=== PATIENT | female | born 1945 | race Asian ===

== ENCOUNTER 2017-06-20 08:47 | Inpatient (IN) | payer MEDICARE, OTHER ==
--- NOTE | 2017-06-20 09:02 | ED Physician Chart ---
ED Chief Complaint/HPI - Patient Information Date Seen:: 06/20/17 Time Seen:: 08:50 Chief Complaint:: Cough History of Present Illness:: onset x one week of cough, fever, and congestion; pt was made a 51/50 hold by police because of agitative behavior at a public place this am; pt denies H/As, Neck pain, C/P, SOB, Abd. Pain, A/N/V/D/c, chills, or urinary s/s Allergies:: Allergies Allergy/AdvReac Type Severity Reaction Status Date / Time No Known Allergies Allergy Verified 06/20/17 08:52 Vitals:: Vital Signs - 8 hr 06/20/17 08:52 Temp 98.1 F HR 69 RR 16 BP 111/57 O2 Sat % 96 Historian:: Patient, EMS Review:: Nurse's Note Reviewed, EMS run form Reviewed ED Review of Systems - Review of Systems General/Constitutional: Fever, Chills, No weight loss, No weakness, No diaphoresis, No edema, No loss of appetite Skin: No skin lesions, No rash, No bruising Head: No headache, No light-headedness Eyes: No loss of vision, No pain, No diplopia ENT: No earache, No nasal drainage, No sore throat, No tinnitus Neck: No neck pain, No swelling, No thyromegaly, No stiffness, No mass noted Cardio Vascular: No chest pain, No palpitations, No PND, No orthopnea, No edema Pulmonary: No SOB, Cough, No sputum, Wheezing GI: No nausea, No vomiting, No diarrhea, No pain, No melena, No hematochezia, No constipation, No hematemesis G/U: No dysuria, No frequency, No hematuria Box Order Person: No vaginal discharge, No abnormal vaginal bleed, No contraction Musculoskeletal: No bone or joint pain, No back pain, No muscle pain Endocrine: No polyuria, No polydipsia Psychiatric: No prior psych history, No depression, No anxiety, No suicidal ideation, No homicidal ideation, No auditory hallucination, No visual hallucination Hematopoietic: No bruising, No lymphadenopathy Allergic/Immuno: No urticaria, No angioedema Neurological: No syncope, No focal symptoms, No weakness, No paresthesia, No headache, No seizure, No dizziness, No confusion, No vertigo ED Past Medical History - Past Medical History Obtainable: Yes Past Medical History: HTN, Asthma/COPD, Thyroid disorder Family History: HTN Social History: Smoker, No Alcohol, No Drug Use, Single, Homeless Surgical History: None Psychiatricy History: None Medication: Reviewed Family Medical History - Family Member Mother Hx Family Cancer: No Hx Family Coronary Artery Disease: No Hx Family Congestive Heart Failure: No Hx Family Hypertension: No Hx Family Stroke: No Hx Family Diabetes: No Hx Family Seizures: No Hx Family Hepatitis: No Hx Family Psychiatric Problems: No ED Physical Exam - Physical Examination General/Constitutional: Awake, Well-developed, well-nourished, Alert, No distress, GCS 15, Non-toxic appearing, Ambulatory Head: Atraumatic Eyes: Lids, conjuctiva normal, PERRL, EOMI Skin: Nl inspection, No rash, No skin lesions, No ecchymosis, Well hydrated, No lymphadenopathy ENMT: External ears, nose nl, Nasal exam nl, Lips, teeth, gums nl Neck: Nontender, Full ROM w/o pain, No JVD, No nuchal rigidity, No bruit, No mass, No stridor Respiratory: Nl effort/Exclusion Other Respiratory comments:: Lungs: + Rales, Rhonchi, and Wheezes Cardio Vascular: RRR, No murmur, gallop, rubs, NL S1 S2 GI: No tenderness/rebounding/guarding, No organomegaly, No hernia, Normal BS's, Nondistended, No mass/bruits, No McBurney tenderness : No CVA tenderness Extremities: No tenderness or effusion, Full ROM, normal strength in all extremities, No edema, Normal digits & nails Neuro/Psych: Alert/oriented, DTR's symmetric, Normal sensory exam, Normal motor strength, Judgement/insight normal, Mood normal, Normal gait, No focal deficits Misc: Normal back, No paraspinal tenderness ED Labs/Radiology/EKG Results - Lab Results Comments:: Na+: 120; WBC: 13.9 - Radiology Results Results: CXR: COPD; + LLL Haziness - EKG Interpretations Rate & Rhythm: NSR Comments:: non-specific st-t changes ED Septic Shock - . Is Septic Shock (SBP<90, OR Lactate>4 mmol\L) present?: No - <6hrs of presentation: Vital Signs: Vital Signs - 8 hr 06/20/17 08:52 Temp 98.1 F HR 69 RR 16 BP 111/57 O2 Sat % 96 ED Reassessment (Disposition) - Reassessment Reassessment Condition:: Improved - Diagnosis Diagnosis:: Dx: Hyponatremia; Dehydration; Cough/Congestion; PNA; COPD; Dyspnea/Wheezing; Leukocytosis; Sepsis - Aftercare/Follow up Instructions Aftercare/Follow-Up Instructions:: Counseled pt regarding lab results/diagnosis & need follow up, Counseled pt & family regarding lab results/diagnosis & need follow up - Patient Disposition Discharge/Transfer:: Acute Care w/in this hosp Accepting Physician:: Dr. Christy Time Called:: 1010 Time Responded:: 10:10 Admitted to:: Telemetry Spoke to:: Dr. Christy Admitting Medical Physician:: Dr. Christy Condition at Disposition:: Stable, Improved
[2017-06-20] MEDS ORDERED: Albuterol/Ipratropium Neb 3 ML AERS HHN ONE ×2 (09:03→09:08)
[2017-06-20] MEDS ORDERED: Levofloxacin 500mg/100mL 500 MG/100 ML BAG IV ONE ×2 (09:09→09:29)
[2017-06-20 09:20] LABS: HEMOGLOBIN 11.4 gm/dL (12-16); MEAN CELL VOLUME 89.1 fl (81-100); MEAN CORPUSCULAR HEMOGLOBIN 31.6 pg (27.0-31.0); MEAN CORPUSCULAR HGB CONC 35.5 pg (28.0-36.0); MEAN PLATELET VOLUME 6.3 fl; PLATELET COUNT 337 Th/cmm (150-400); RED BLOOD COUNT 3.59 Mil/cmm (3.80-5.20)
[2017-06-20 09:26] LABS: WHITE BLOOD COUNT 13.9 Th/cmm (4.8-10.8)
--- NOTE | 2017-06-20 09:33 | Diagnostic Imaging Report ---
Portable chest x-ray HISTORY: Pain The overall heart size is difficult to assess with portable technique, but appears somewhat generous. Atherosclerotic calcification seen within the aortic arch. No acute focal pulmonary processes. IMPRESSION: 1. No acute pulmonary processes 2. Suggestion of a generous heart size with atherosclerotic vascular changes
[2017-06-20 09:42] LABS: INR 0.96 (0.5-1.4)
[2017-06-20] MEDS ORDERED: Guaifenesin DM 10 ML UDC PO ONE (09:43)
[2017-06-20 09:44] LABS: BAND NEUTROPHILE 3 % (0-10); EOSINOPHIL 1 % (0-5); NEUTROPHILS 83 % (40-80); TOTAL CELLS COUNTED 100
[2017-06-20 09:46] LABS: ACETAMINOPHEN < 10.0 ug/mL (10.0-30.0)
[2017-06-20 09:48] LABS: ALKALINE PHOSPHATASE 118 U/L (34-104); ANION GAP 9.5 (7.0-16.0); BILIRUBIN,TOTAL 0.6 mg/dL (0.3-1.0); BUN - UREA NITROGEN 19 mg/dL (7-25); BUN/CREATININE RATIO 17.3; CALCIUM SERUM 8.7 mg/dL (8.6-10.3); CARBON DIOXIDE 24.4 mEq/L (21.0-31.0); CHLORIDE 91 mEq/L (98-107); CHOLESTEROL 150 mg/dL (<200); CREATININE - SERUM 1.1 mg/dL (0.6-1.2); GLUCOSE 118 mg/dL (70-105); POTASSIUM SERUM 4.9 mEq/L (3.5-5.1); SGOT 55 U/L (13-39); SGPT/ALT 35 U/L (7-52); TRIGLYCERIDES 81 mg/dL (<150)
[2017-06-20 09:58] LABS: SODIUM SERUM 120 mEq/L (136-145)
[2017-06-20] MEDS ORDERED: Guaifenesin DM 10 ML UDC ONE (10:13)
[2017-06-20] MEDS ORDERED: Sodium Chloride 0.9% 1,000 ML IV ONE (10:18)
[2017-06-20 10:24] LABS: URINE BILIRUBIN NEGATIVE (NEGATIVE); URINE BLOOD NEGATIVE (NEGATIVE); URINE GLUCOSE (UA) NEGATIVE (NEGATIVE); URINE KETONE NEGATIVE (NEGATIVE); URINE PROTEIN NEGATIVE (NEGATIVE); URINE UROBILINOGEN 0.2 E.U./dL (0.2 - 1.0)
[2017-06-20 10:26] LABS: URINE COLOR YELLOW
[2017-06-20 10:30] LABS: URINE EPITHELIAL CELLS FEW /lpf (FEW); URINE RBC NONE SEEN /hpf (0-5); URINE WBC 0-2 /hpf (0-5)
[2017-06-20 10:31] LABS: URINE BACTERIA OCCASIONAL /hpf (NONE SEEN)
[2017-06-20 10:37] LABS: AMPHETAMINE URINE NEGATIVE (NEGATIVE); BARBITURATES URINE NEGATIVE (NEGATIVE); METHADONE URINE NEGATIVE (NEGATIVE)
[2017-06-20] MEDS ORDERED: Albuterol/Ipratropium Neb 3 ML AERS HHN PRN (10:40)
[2017-06-20] MEDS ORDERED: Sodium Chloride 0.9% 1,000 ML IV SCH (14:15)
[2017-06-20] MEDS: Albuterol/Ipratropium Neb 3 ML AERS HHN SCH ×3 (16:03→22:08)
[2017-06-20] MEDS ORDERED: Pneumococcal Vaccine 0.5 mL Vial IM ONE (16:51)
[2017-06-20] MEDS ORDERED: methylPREDNISolone SS 40 mg Vial IVP SCH (17:00)
[2017-06-20] MEDS ORDERED: Sodium Chloride 3% 250 ML IV ONE (19:43)
[2017-06-20 20:25] LABS: ALB/GLOB RATIO 1.1 (1.0-1.8); ALKALINE PHOSPHATASE 104 U/L (34-104); ANION GAP 8.8 (7.0-16.0); BILIRUBIN,TOTAL 0.3 mg/dL (0.3-1.0); BUN - UREA NITROGEN 19 mg/dL (7-25); CALCIUM SERUM 8.4 mg/dL (8.6-10.3); CHLORIDE 93 mEq/L (98-107); GLUCOSE 203 mg/dL (70-105); POTASSIUM SERUM 4.8 mEq/L (3.5-5.1); SGOT 40 U/L (13-39); SGPT/ALT 30 U/L (7-52); SODIUM SERUM 120 mEq/L (136-145)
[2017-06-20] MEDS ORDERED: methylPREDNISolone SS 40 mg Vial IV SCH (21:00)
[2017-06-20] MEDS ORDERED: Sodium Chloride 3% 500 ML IV ONE (21:32)
[2017-06-20 22:25] LABS: URINE BILIRUBIN NEGATIVE (NEGATIVE); URINE BLOOD TRACE (NEGATIVE); URINE GLUCOSE (UA) NEGATIVE (NEGATIVE); URINE KETONE NEGATIVE (NEGATIVE); URINE PROTEIN NEGATIVE (NEGATIVE); URINE UROBILINOGEN 0.2 E.U./dL (0.2 - 1.0)
[2017-06-20 22:28] LABS: URINE COLOR YELLOW
[2017-06-20 22:32] LABS: URINE EPITHELIAL CELLS FEW /lpf (FEW); URINE RBC 0-2 /hpf (0-5); URINE WBC 0-2 /hpf (0-5)
[2017-06-20 22:33] LABS: URINE BACTERIA FEW /hpf (NONE SEEN)
[2017-06-21] MEDS: Albuterol/Ipratropium Neb 3 ML AERS HHN SCH ×6 (02:58→23:08)
--- NOTE | 2017-06-21 03:51 | Consultation ---
DATE OF CONSULTATION: 06/20/2017 REASON FOR CONSULTATION: Shortness of breath. HISTORY OF PRESENT ILLNESS: This is a 71-year-old gentleman who was basically found on the street with behavior problem. Subsequently, the patient was brought to the hospital and apparently there was some question as to patient's asthmatic bronchitis and shortness of breath. I was asked to see this patient for further care and necessary treatment. At this particular time, patient is awake, but not feisty, but most of the questions she says she does not have a problem. The patient accepts that patient has some coughing and wheezing for a few days. Denies of any chest pain and denied of any fever or denied of any previous lung problem. Denied of swelling of the legs and denies of any other related problems at this particular time. She claims to be living with the family, though does not remember any family name, etc. Denies of any fever. She says she may have lost weight, but could not be quantified. The patient's, unfortunately, history is very limited at this particular time. PAST MEDICAL HISTORY: Possibly bronchial asthma. ALLERGIC HISTORY: Nil. SMOKING HISTORY: Nil. SURGICAL HISTORY: Denies. PHYSICAL EXAMINATION: GENERAL: This is an elderly cachectic, frail, white looking female, awake, alert, oriented, not in acute distress. VITAL SIGNS: The patient's temperature is 98.3, blood pressure 112/50, respirations 20, saturation 99 Examination of the head is essentially unremarkable. Pupils appear to be equal and reacting to light. Conjunctivae are slightly pallor. Oral cavity shows slightly dry mouth, but otherwise unremarkable. NECK: No nodes in the neck could be palpated. Good bilateral carotid upstroke. CHEST: Shows occasional wheezing with diminished air entry. HEART: Regular. ABDOMEN: Soft, nontender. EXTREMITIES: Shows no peripheral edema. LABORATORY DATA: The patient's chest x-ray shows some haziness in left base, otherwise unremarkable with borderline cardiomegaly. White count is 13.9, hemoglobin 11.4 and neutrophils 83. Sodium is 120, glucose is 118, AST is 55, and alkaline phosphatase is 118. CK-kinase is 1200, troponin is okay. Albumin is 3.6. TSH is 8.0. Urine shows high specific gravity, but otherwise unremarkable. ASSESSMENT: 1. The patient has probably acute asthmatic bronchitis. 2. Severe electrolyte imbalance, might have caused the psychosis; exact etiology not clearcut. 3. Question as to chronic bronchial asthma. 4. Significant malnourished clinically. PLANS AND SUGGESTIONS: We will go ahead and correct electrolytes. We will give nebulized breathing treatment with bronchodilator and inhaled steroid. I agree with empirical antibiotic. We will repeat the patient's chest x-ray, check the need for O2 and hopefully down the line, we can get more reliable history and go from there. JOB# [id number]
[2017-06-21 06:48] LABS: ALB/GLOB RATIO 1.1 (1.0-1.8); ALKALINE PHOSPHATASE 96 U/L (34-104); ANION GAP 12.6 (7.0-16.0); BILIRUBIN,TOTAL 0.2 mg/dL (0.3-1.0); BUN - UREA NITROGEN 24 mg/dL (7-25); BUN/CREATININE RATIO 21.8; CALCIUM SERUM 8.2 mg/dL (8.6-10.3); CARBON DIOXIDE 21.5 mEq/L (21.0-31.0); CHLORIDE 96 mEq/L (98-107); CREATININE - SERUM 1.1 mg/dL (0.6-1.2); GLUCOSE 230 mg/dL (70-105); MAGNESIUM 1.9 mg/dL (1.9-2.7); POTASSIUM SERUM 4.1 mEq/L (3.5-5.1); SGOT 28 U/L (13-39); SGPT/ALT 27 U/L (7-52); SODIUM SERUM 126 mEq/L (136-145)
[2017-06-21] MEDS: Budesonide 0.5 Mg/2 mL Ud HHN SCH ×2 (07:01→19:27)
[2017-06-21 07:03] LABS: HEMOGLOBIN 9.7 gm/dL (12-16); MEAN PLATELET VOLUME 6.7 fl; NEUTROPHILE ABSOLUTE 16.5 Th/cmm (1.8-8.0)
[2017-06-21 07:06] LABS: MEAN CELL VOLUME 89.1 fl (81-100); MEAN CORPUSCULAR HGB CONC 34.7 pg (28.0-36.0); PLATELET COUNT 291 Th/cmm (150-400); RED BLOOD COUNT 3.14 Mil/cmm (3.80-5.20); RED CELL DISTRIBUTION WIDTH 14.2 % (11.5-20.0)
[2017-06-21 07:20] LABS: WHITE BLOOD COUNT 18.1 Th/cmm (4.8-10.8)
[2017-06-21] MEDS ORDERED: Levothyroxine 0.05 Mg Tab PO SCH (07:30)
[2017-06-21 07:34] LABS: BILIRUBIN,DIRECT 0.08 mg/dL (0.0-0.2)
[2017-06-21 07:42] LABS: BAND NEUTROPHILE 4 % (0-10); NEUTROPHILS 87 % (40-80); TOTAL CELLS COUNTED 100
[2017-06-21 08:57] LABS: ABG SOURCE Arterial; ALLEN TEST YES; BE(B) -0.1 mEq/L (-3.0-3.0); FIO2 21; HCO3 24.8 mEq/L (20.0-26.0); pH 7.43 (7.35-7.45)
[2017-06-21] MEDS: cefTRIAXone 1 GM in Sodium Chloride 0.9% 50 ML IV SCH (10:00)
--- NOTE | 2017-06-21 10:51 | Diagnostic Imaging Report ---
Chest 2 views History: Shortness of breath bronchitis Comparison: 06/20/2017 FINDINGS: Mild chronic lung changes are noted. There is no focal consolidation or pleural effusions mild cardiomegaly is noted. Gas-filled loops of bowel are seen along the left upper quadrant. Degenerative changes of the spine are noted. IMPRESSION: Mild chronic lung changes with no focal consolidation identified. Mild cardiomegaly.
[2017-06-21] MEDS: methylPREDNISolone SS 40 mg Vial IVP SCH ×2 (13:00→21:15)
[2017-06-21] MEDS ORDERED: methylPREDNISolone SS 40 mg Vial IVP SCH (13:00)
[2017-06-21] MEDS ORDERED: Menthol/Zinc Oxide Oint 113gm Tube TP PRN (17:48)
--- NOTE | 2017-06-21 19:46 | History & Physical ---
ADMIT DATE: 06/20/2017 CHIEF COMPLAINT: Cough. HISTORY OF PRESENT ILLNESS: This is a 71-year-old female who is a chronic smoker, who was brought to Emergency Room for evaluation of severe cough with some shortness of breath. The patient was evaluated in the Emergency Room, diagnosed with the acute COPD exacerbation and subsequently admitted to the hospital for treatments. The patient is currently homeless. The patient admits chronic smoking. Denies any fever, no chills, no chest pain, no dizziness, no palpitations. The patient does not have any regular physician or she denies taking any medications on a regular basis. PAST MEDICAL HISTORY: Hypothyroidism. PAST SURGICAL HISTORY: Denies. FAMILY HISTORY: Denies significant family history. SOCIAL HISTORY: She is currently at homeless. Denies any alcohol or street drug use. Admits to daily smoking. REVIEW OF SYSTEMS: For cough. Otherwise, all 12-point system reviewed, appears negative. PHYSICAL EXAMINATION: VITAL SIGNS: Temperature 98.6, pulse 102, respiration is 20, blood pressure 112/56. HEART: S1, S2 normal. LUNGS: Bilateral few rales noted. ABDOMEN: Soft, nontender, no guarding noted. NEUROLOGIC: The patient is alert, awake. Moves all extremities, follows commands. Grossly nonfocal exam. EXTREMITIES: No edema. No ____ available. AVAILABLE LABORATORY DATA: WBC 18.1, hemoglobin ____, hematocrit 28.0, platelet count is 291. ABG pH 7.43, pCO2 of 36, pO2 of 74, bicarbonate 24.8. Sodium 120, potassium 4.1, BUN is 24, creatinine 1.1. Uric acid 8.1. Troponin 0.01. BNP 50, total protein is 5.8. TSH 8.04, HDL 66, LDL 85, total cholesterol 150. Urine negative for any leukocyte esterase or nitrites. Chest x-ray today, mild chronic lung changes with no focal consolidation, mild cardiomegaly noted. ASSESSMENT: 1.Acute chronic obstructive pulmonary disease exacerbation, slowly improving. 2.Hypothyroidism. 3.Homelessness. PLAN: The patient was started on IV Solu-Medrol, oxygen, frequent nebulizer treatment. IV Rocephin was started. Pulmonology was consulted. The patient was started on Synthroid. Social service and Psych has been consulted. We will follow up on the further specialty recommendations, smoking cessation advised. The patient also noticed to have hyponatremia. Nephrology was consulted. The patient appeared to have an excess water intake. The patient was given 1 dose of Lasix, sodium has been improved. We will follow serum osmolality, urine ____ was noted. We will follow up on the further Nephrology's recommendations as well. Discussed patient's condition and plan care with nursing staff. Social service has been consulted for homelessness evaluation. JOB# [id number]
[2017-06-21 22:45] VITALS: BP 112/45
--- NOTE | 2017-06-21 22:49 | Consultation ---
DATE OF CONSULTATION: 06/21/2017 HISTORY OF PRESENT ILLNESS: This is a 71-year-old female brought in on 5150 hold by police, agitation, and agitated behavior in public. Apparently, the patient is homeless, acting strange, somewhat confused, . AO to name. She knows where she is. She has no idea why she is here. She knows the month, the year, and not the day of the week. Denying overt depressive symptoms. PAST PSYCHIATRIC HISTORY: Unclear. FAMILY HISTORY: Unclear. SOCIAL HISTORY: The patient was born in the [facility]. . States she has one son, "but he is in [facility]." No drugs, but she smokes. PAST MEDICAL HISTORY: Please see full H and P. MENTAL STATUS EXAMINATION: Stated age. Fair eye contact. Speech within normal limits. Mood unclear. Affect flat. Thought processes were somewhat disoriented. No overt SI or HI. Unclear of psychotic symptoms, but she denies, but apparently, she was acting strange in public, concerns for grave disability. Insight and judgment diminished. PROVISIONAL DIAGNOSIS: Mood, unspecified; psychosis, unspecified. MEDICAL DIAGNOSIS: Please see full H and P. PLAN: Continue 5150 hold. Increase collateral. The patient is not a very good historian. We will monitor. JOB# [id number] MTDJose Alfredo
--- NOTE | 2017-06-21 23:20 | Consultation ---
DATE OF CONSULTATION: 06/21/2017 RENAL CONSULT LOCATION: [facility], room #____, bed 4. ATTENDING PHYSICIAN: Dr. Christy. I thank you very much, Dr. Christy for allowing me to participate in the management of this patient of yours. IDENTIFICATION: This is a 71-year-old female patient who is not a good historian. History has been taken by reviewing the old chart, Emergency Room chart and a little bit information from the patient. HISTORY OF PRESENT ILLNESS: This is a 71-year-old female patient who was found in a lethargic state, on the street with some behavioral problem. Apparently, the patient has been homeless and was short of breathing. The patient was brought to the Emergency Room, where she was found to have bronchitis, but at that same time, the patient also has severe hyponatremia. Upon questioning in detail, the patient states that she does not have much food to eat and she is drinking lots of water lately. The patient was evaluated by ER physician and subsequently laboratory technical specialist. The patient has been admitted. The patient initially was started on normal saline at 80 mL per hour, which has been discontinued. According to the staff, the patient does not have any vomiting or diarrhea. No history of seizures. No history of hematuria, anuria or dysuria. There is no history of abdominal pain or chest pain. The patient was very agitated on the street before picking her up. PAST MEDICAL AND SURGICAL HISTORY: Possible history of asthma, COPD, hypertension and some thyroid disorder. SOCIAL HISTORY: No history of alcoholism. The patient is a smoker. No drug use. The patient is homeless. PHYSICAL EXAMINATION: GENERAL: The patient is not in acute distress. VITAL SIGNS: Temperature 98.1, heart rate 69, respirations 16, blood pressure 111/57. Intake and output not available. HEAD: Normocephalic. EAR, NOSE, THROAT: No bleeding or discharge. NECK: No stiffness. Jugular venous pressure slightly distended. LUNGS: Few rhonchi on the right base, otherwise clear. HEART: Regular, no rub or gallop. ABDOMEN: Soft, not distended. EXTREMITIES: Trace edema. LABORATORY DATA: WBC 18.1, hemoglobin 9.7, platelet count 291,000. Sodium 120, potassium 4.9, chloride 91, CO2 24, sugar 118, BUN 19, creatinine 1.1. Uric acid 8.4, calcium 8.7, AST, ALT elevated. Albumin 3.6. TSH 8.04. ASSESSMENT: 1.Hyponatremia. 2.Hypothyroidism. 3.Hypertension. 4.Anemia. 5.Asthma. PLAN: I will discontinue normal saline IV. We will start the patient on ____. I will give Lasix to increase free water clearance. I will start patient on levothyroxine. Anemia workup will be initiated. Check phosphorus, magnesium, CMP, urinalysis, urine electrolytes. Further management depends upon the outcome of this management. Case has been discussed at length with nursing staff and Dr. Christy. JOB# [id number]
[2017-06-22] MEDS: Albuterol/Ipratropium Neb 3 ML AERS HHN SCH ×6 (03:04→19:08)
--- NOTE | 2017-06-22 03:56 | Progress Notes ---
DATE: 06/21/2017 PULMONARY PROGRESS NOTE PROBLEM LIST: 1. Chronic asthmatic bronchitis. 2. Possibly Alzheimer's. SYMPTOMS: The patient says, he is feeling okay, offers no specific new symptoms. He is periodically restless, agitated. No respiratory distress, etc. PHYSICAL EXAMINATION: VITAL SIGNS: Temperature 98.6, blood pressure 69, respirations 20, temperature is 96. NECK: Veins not visualized. CHEST: Shows diminished air entry with occasional rhonchi. HEART: Regular. ABDOMEN: Soft, nontender. LABORATORY DATA: White count is 18,000, hemoglobin 9%. ABG, pO2 of 74. ASSESSMENT: The patient clinically appears to be stable, not much changed. PLANS AND SUGGESTIONS: We will go ahead and continue current treatment, inhalation treatment. Follow through other studies, etc. and go from there. JOB# [id number]
[2017-06-22] MEDS: methylPREDNISolone SS 40 mg Vial IVP SCH ×3 (04:31→21:03)
[2017-06-22 06:13] LABS: HEMATOCRIT 28.4 % (41.0-60); MEAN CELL VOLUME 89.8 fl (81-100); MEAN CORPUSCULAR HEMOGLOBIN 31.7 pg (27.0-31.0); MEAN CORPUSCULAR HGB CONC 35.3 pg (28.0-36.0); MEAN PLATELET VOLUME 6.4 fl; PLATELET COUNT 293 Th/cmm (150-400); RED BLOOD COUNT 3.17 Mil/cmm (3.80-5.20); RED CELL DISTRIBUTION WIDTH 14.3 % (11.5-20.0)
[2017-06-22 06:27] LABS: ALB/GLOB RATIO 1.1 (1.0-1.8); ALKALINE PHOSPHATASE 90 U/L (34-104); BILIRUBIN,TOTAL 0.2 mg/dL (0.3-1.0); BUN - UREA NITROGEN 29 mg/dL (7-25); BUN/CREATININE RATIO 26.4; CALCIUM SERUM 8.4 mg/dL (8.6-10.3); CHLORIDE 98 mEq/L (98-107); CREATININE - SERUM 1.1 mg/dL (0.6-1.2); GLUCOSE 137 mg/dL (70-105); MAGNESIUM 2.1 mg/dL (1.9-2.7); PHOSPHOROUS 3.5 mg/dL (2.5-5.0); SGOT 20 U/L (13-39); SGPT/ALT 25 U/L (7-52); SODIUM SERUM 127 mEq/L (136-145)
[2017-06-22 06:36] LABS: WHITE BLOOD COUNT 16.2 Th/cmm (4.8-10.8)
[2017-06-22] MEDS: Levothyroxine 0.05 Mg Tab PO SCH (06:47)
[2017-06-22 07:41] LABS: NEUTROPHILS 93 % (40-80); PLATELET ESTIMATE ADEQUATE (NORMAL); TOTAL CELLS COUNTED 100
[2017-06-22 08:09] LABS: T3 FREE 1.1 pg/mL (2.0-4.4); T4 FREE 0.84 ng/dL (0.82-1.77)
[2017-06-22] MEDS: Budesonide 0.5 Mg/2 mL Ud HHN SCH ×3 (08:34→19:07)
--- NOTE | 2017-06-22 08:35 | Progress Notes ---
DATE: 06/22/2017 SUBJECTIVE: Chart reviewed and the patient interviewed. Also discussed the patient's condition with the staff and reviewed records and labs. The patient is still agitated and restless. The patient also is still disheveled and personal hygiene is still poor. The patient did not sleep most of last night. She also is restless and she needs lots of redirections. The patient also is not able to provide any information about living situation or about her appetite or family. She is still confused and agitated. Also during interview, the patient seems to be preoccupied. ASSESSMENT: The patient is still psychotic and gravely disabled. TREATMENT PLAN: We will continue monitoring her behavior and her condition closely. Also, we will start Seroquel in a dose of 12.5 mg in the morning and 25 mg in the evening and we will continue to follow up. JOB# [id number]
[2017-06-22] MEDS: cefTRIAXone 1 GM in Sodium Chloride 0.9% 50 ML IV SCH (08:59)
[2017-06-22] MEDS: Menthol/Zinc Oxide Oint 113gm Tube TP SCH ×4 (09:00→21:20)
[2017-06-22] MEDS ORDERED: Probiotic Screen MC PRN (13:53)
[2017-06-22] MEDS: Ipratropium Neb 0.5 mg/2.5 mL UD HHN SCH ×2 (19:08)
--- NOTE | 2017-06-22 21:41 | Progress Notes ---
DATE: 06/22/2017 PROBLEM LIST: 1. Acute exacerbation of chronic obstructive pulmonary disease. 2. Possibly metabolic syndrome and also morbid obesity. SYMPTOMS: Nil, wants to go home. The patient claims to have no other issues. PHYSICAL EXAMINATION: VITAL SIGNS: Temperature is 98.7, saturation 98% on room air. NECK: Veins not visualized. CHEST: Shows diminished air entry with occasional rhonchi. HEART: Regular. ABDOMEN: Soft, nontender. LABORATORY DATA: White count is slightly down to 16.2. ASSESSMENT: 1. The patient is clinically stable, improving acute exacerbation of chronic obstructive pulmonary disease. 2. Suspect morbid obesity with obesity hypoventilation syndrome. PLANS AND SUGGESTIONS: We will continue current treatment. Increase mobilization and see how he does and go from there. JOB# [id number]
[2017-06-23] MEDS: Menthol/Zinc Oxide Oint 113gm Tube TP SCH ×2 (01:01→08:57)
[2017-06-23] MEDS: methylPREDNISolone SS 40 mg Vial IVP SCH (05:40)
[2017-06-23 05:57] LABS: ANION GAP 8.9 (7.0-16.0); BUN - UREA NITROGEN 29 mg/dL (7-25); CALCIUM SERUM 8.5 mg/dL (8.6-10.3); CARBON DIOXIDE 25.2 mEq/L (21.0-31.0); CHLORIDE 97 mEq/L (98-107); GLUCOSE 123 mg/dL (70-105); POTASSIUM SERUM 5.1 mEq/L (3.5-5.1); SODIUM SERUM 126 mEq/L (136-145)
[2017-06-23] MEDS: Levothyroxine 0.05 Mg Tab PO SCH (06:41)
[2017-06-23] MEDS: Budesonide 0.5 Mg/2 mL Ud HHN SCH (07:06)
[2017-06-23] MEDS: Albuterol/Ipratropium Neb 3 ML AERS HHN SCH ×2 (07:06→10:42)
[2017-06-23 08:08] LABS: IRON SATURATION 25 % (15-55); TIBC (LCI) 216 ug/dL (250-450); UIBC 161 ug/dL (118-369)
[2017-06-23] MEDS: cefTRIAXone 1 GM in Sodium Chloride 0.9% 50 ML IV SCH (08:53)
--- NOTE | 2017-06-23 09:14 | General Progress Note ---
Subjective - Review of Systems Service Date: 06/22/17 Subjective: Late entry: Patient was seen and examined doing better denied any complaints Objective - Results Result Diagrams: 06/22/17 05:33 06/23/17 05:27 Recent Labs: Laboratory Last Values WBC 16.2 Th/cmm (4.8-10.8) H 06/22/17 05:33 RBC 3.17 Mil/cmm (3.80-5.20) L 06/22/17 05:33 Hgb 10.0 gm/dL (12-16) L 06/22/17 05:33 Hct 28.4 % (41.0-60) L 06/22/17 05:33 MCV 89.8 fl (81-100) 06/22/17 05:33 MCH 31.7 pg (27.0-31.0) H 06/22/17 05:33 MCHC Differential 35.3 pg (28.0-36.0) 06/22/17 05:33 RDW 14.3 % (11.5-20.0) 06/22/17 05:33 Plt Count 293 Th/cmm (150-400) 06/22/17 05:33 MPV 6.4 fl 06/22/17 05:33 Neutrophils % WIRELESS DEVELOPMENT MANAGER 06/21/17 06:00 Band Neutrophils % 4 % (0-10) 06/21/17 06:00 Lymphocytes % WIRELESS DEVELOPMENT MANAGER 06/21/17 06:00 Monocytes % WIRELESS DEVELOPMENT MANAGER 06/21/17 06:00 Eosinophils % WIRELESS DEVELOPMENT MANAGER 06/21/17 06:00 Neutrophils (Manual) 93 % (40-80) H 06/22/17 05:33 Lymphocytes 5 % (20-50) L 06/22/17 05:33 Monocytes 2 % (2-10) 06/22/17 05:33 Eosinophils 1 % (0-5) 06/20/17 09:10 Platelet Estimate ADEQUATE (NORMAL) 06/22/17 05:33 PT 10.0 SECONDS (9.5-11.5) 06/20/17 09:10 INR 0.96 (0.5-1.4) 06/20/17 09:10 PTT (Actin FS) 28.5 SECONDS (26.0-38.0) 06/20/17 09:10 Specimen Source Arterial 06/21/17 08:50 Sample Site Right Radial 06/21/17 08:50 pH 7.43 (7.35-7.45) 06/21/17 08:50 pCO2 36.0 mmHg (35.0-45.0) 06/21/17 08:50 pO2 74.0 mmHg (80.0-100.0) L 06/21/17 08:50 HCO3 24.8 mEq/L (20.0-26.0) 06/21/17 08:50 Base Excess -0.1 mEq/L (-3.0-3.0) 06/21/17 08:50 O2 Saturation 95.0 % (92.0-100.0) 06/21/17 08:50 Alvaro Test YES 06/21/17 08:50 Vent Rate NA 06/21/17 08:50 Inspired O2 21 06/21/17 08:50 Tidal Volume NA 06/21/17 08:50 PEEP NA 06/21/17 08:50 Pressure (ins/psv/peep) NA 06/21/17 08:50 Critical Value E.CAAL 06/21/17 08:50 Sodium 126 mEq/L (136-145) L 06/23/17 05:27 Potassium 5.1 mEq/L (3.5-5.1) 06/23/17 05:27 Chloride 97 mEq/L (98-107) L 06/23/17 05:27 Carbon Dioxide 25.2 mEq/L (21.0-31.0) 06/23/17 05:27 Anion Gap 8.9 (7.0-16.0) 06/23/17 05:27 BUN 29 mg/dL (7-25) H 06/23/17 05:27 Creatinine 1.0 mg/dL (0.6-1.2) 06/23/17 05:27 Est GFR ( Amer) TNP 06/23/17 05:27 Est GFR (Non-Af Amer) TNP 06/23/17 05:27 BUN/Creatinine Ratio 29.0 06/23/17 05:27 Glucose 123 mg/dL (70-105) H 06/23/17 05:27 Hemoglobin A1c % 6.4 % (4.0-6.0) H 06/20/17 19:43 Plasma/Ser Osmolality 260 mOsmol/kg (280-301) L 06/20/17 09:10 Whole Bld Lactic Acid 1.40 mmol/L (0.60-1.99) 06/20/17 09:10 Uric Acid 8.4 mg/dL (2.3-6.6) H 06/20/17 09:18 Calcium 8.5 mg/dL (8.6-10.3) L 06/23/17 05:27 Phosphorus 3.5 mg/dL (2.5-5.0) 06/22/17 05:33 Magnesium 2.1 mg/dL (1.9-2.7) 06/22/17 05:33 Iron 55 ug/dL (27-139) 06/22/17 05:33 TIBC 216 ug/dL (250-450) L 06/22/17 05:33 Iron Saturation 25 % (15-55) 06/22/17 05:33 Unsaturated IBC 161 ug/dL (118-369) 06/22/17 05:33 Total Bilirubin 0.2 mg/dL (0.3-1.0) L 06/22/17 05:33 Direct Bilirubin 0.08 mg/dL (0.0-0.2) 06/21/17 06:00 AST 20 U/L (13-39) 06/22/17 05:33 ALT 25 U/L (7-52) 06/22/17 05:33 Alkaline Phosphatase 90 U/L (34-104) 06/22/17 05:33 Ammonia 39 umol/L (16-53) 06/21/17 06:00 Creatine Kinase 1257 U/L (30-223) H 06/20/17 09:10 CK-MB (CK-2) 49.0 ng/mL (0.6-6.3) H 06/20/17 09:10 Troponin I 0.01 ng/mL (0.01-0.05) 06/20/17 09:10 B-Natriuretic Peptide 50.0 pg/mL (5.0-100.0) 06/20/17 09:10 Total Protein 6.0 gm/dL (6.0-8.3) 06/22/17 05:33 Albumin 3.1 gm/dL (3.7-5.3) L 06/22/17 05:33 Globulin 2.9 gm/dL 06/22/17 05:33 Albumin/Globulin Ratio 1.1 (1.0-1.8) 06/22/17 05:33 Triglycerides 81 mg/dL (<150) 06/20/17 09:10 Cholesterol 150 mg/dL (<200) 06/20/17 09:10 LDL Cholesterol Direct 85 mg/dL (75-193) 06/20/17 09:10 HDL Cholesterol 66 mg/dL (23-92) 06/20/17 09:10 Free T4 0.84 ng/dL (0.82-1.77) 06/21/17 06:00 Free T3 1.1 pg/mL (2.0-4.4) L 06/21/17 06:00 TSH 8.04 uIU/ml (0.34-5.60) H 06/20/17 09:10 Urine Source [place] 06/20/17 21:50 Urine Color YELLOW 06/20/17 21:50 Urine Clarity CLEAR (CLEAR) 06/20/17 21:50 Urine pH 6.0 (4.6 - 8.0) 06/20/17 21:50 Ur Specific [place] <= 1.005 (1.005-1.030) 06/20/17 21:50 Urine Protein NEGATIVE mg/dL (NEGATIVE) 06/20/17 21:50 Urine Glucose (UA) NEGATIVE mg/dL (NEGATIVE) 06/20/17 21:50 Urine Ketones NEGATIVE mg/dL (NEGATIVE) 06/20/17 21:50 Urine Blood TRACE (NEGATIVE) 06/20/17 21:50 Urine Nitrate NEGATIVE (NEGATIVE) 06/20/17 21:50 Urine Bilirubin NEGATIVE (NEGATIVE) 06/20/17 21:50 Urine Urobilinogen 0.2 E.U./dL (0.2 - 1.0) 06/20/17 21:50 Ur Leukocyte Esterase NEGATIVE (NEGATIVE) 06/20/17 21:50 Urine RBC 0-2 /hpf (0-5) 06/20/17 21:50 Urine WBC 0-2 /hpf (0-5) 06/20/17 21:50 Ur Epithelial Cells FEW /lpf (FEW) 06/20/17 21:50 Urine Bacteria FEW /hpf (NONE SEEN) 06/20/17 21:50 Urine Mucus FEW /lpf (FEW) 06/20/17 10:15 Ur Random Sodium 44 mmol/L 06/20/17 21:50 Ur Random Potassium 28.0 mmol/L 06/20/17 21:50 Salicylates < 25.0 mg/L (30.0-100.0) L 06/20/17 09:10 Urine Opiates Screen NEGATIVE (NEGATIVE) 06/20/17 10:15 Urine Methadone Screen NEGATIVE (NEGATIVE) 06/20/17 10:15 Acetaminophen < 10.0 ug/mL (10.0-30.0) L 06/20/17 09:10 Ur Barbiturates Screen NEGATIVE (NEGATIVE) 06/20/17 10:15 Ur Tricyclics Screen NEGATIVE (NEGATIVE) 06/20/17 10:15 Ur Phencyclidine Scrn NEGATIVE (NEGATIVE) 06/20/17 10:15 Amphetamines Screen NEGATIVE (NEGATIVE) 06/20/17 10:15 U Methamphetamines Scrn NEGATIVE (NEGATIVE) 06/20/17 10:15 U Benzodiazepines Scrn NEGATIVE (NEGATIVE) 06/20/17 10:15 U Cocaine Metab Screen NEGATIVE (NEGATIVE) 06/20/17 10:15 U Cannabinoids Screen NEGATIVE (NEGATIVE) 06/20/17 10:15 Ethyl Alcohol < 10 mg/dL (0-10) 06/20/17 09:10 RPR NONREACTIVE (NONREACTIVE) 06/20/17 09:10 - Physical Exam Vitals and I&O: Vital Signs Temp 97.4 F 06/23/17 04:00 Pulse 61 06/23/17 07:12 Resp 16 06/23/17 07:12 BP 138/63 06/23/17 04:00 Pulse Ox 97 06/23/17 07:12 Intake & Output 06/22/17 06/23/17 06/23/17 18:59 06:59 18:59 Intake Total 1300 500 Output Total 1100 2000 Balance 200 -1500 Weight (lbs) 65.998 kg 64.864 kg Intake: Intake, IV Amount 50 [id number] 1 gm In 50 Sodium Chloride 0.9% 50 ml @ 100 mls/hr IV Q24HR KRISH Rx#:[id number] Oral 1250 500 Output: Urine 1100 2000 Other: # Bowel Movements 0 Active Medications: Current Medications Acetaminophen (Tylenol) 650 mg PO Q4HR PRN PRN Reason: Pain Or Fever above 101 Stop: 08/19/17 20:48 Albuterol/Ipratropium (Duoneb Neb) 3 ml HHN Q2HRT PRN PRN Reason: Shortness of Breath Stop: 08/19/17 10:39 Albuterol/Ipratropium (Duoneb Neb) 3 ml HHN Q4HRT [facility], [facility]1983 Stop: 08/19/17 14:59 Last Admin: 06/23/17 07:06 Dose: 3 ml Budesonide (Pulmicort) 0.5 mg HHN BIDRT [facility], [facility]1983 Stop: 08/20/17 06:59 Last Admin: 06/23/17 07:06 Dose: 0.5 mg Calamine/Phenol (Calmoseptine) 1 appl TP QID PRN PRN Reason: Skin Irritation Stop: 08/20/17 17:47 Calamine/Phenol (Calmoseptine) 1 appl TP QID [facility], [facility]1983 Stop: 08/20/17 20:59 Last Admin: 06/23/17 08:57 Dose: 1 appl Furosemide (Lasix) 20 mg PO DAILY [facility], [facility]1983 Stop: 08/22/17 08:59 Ceftriaxone Sodium 1 gm/ (Sodium Chloride) 50 mls @ 100 mls/hr IV Q24HR [facility]1983 Stop: 08/20/17 08:59 Last Admin: 06/23/17 08:53 Dose: 100 mls/hr Ipratropium [place] (Atrovent Neb 0.5mg/2.5ml) 0.5 mg HHN Q6HRT [facility], [facility]1983 Stop: 08/20/17 00:59 Last Admin: 06/22/17 19:08 Dose: Not Given Levothyroxine Sodium (Synthroid) 0.05 mg PO QDAC [facility]1983 Stop: 08/21/17 07:29 Last Admin: 06/23/17 06:41 Dose: 0.05 mg Methylprednisolone Sodium Succinate (Solu-Medrol) 20 mg IVP Q8HR KRISH Stop: 08/20/17 12:59 Last Admin: 06/23/17 05:40 Dose: 20 mg Miscellaneous (Probiotic Screen) 1 ea MC PRN PRN PRN Reason: PROTOCOL Stop: 08/21/17 13:52 Ondansetron HCl (Zofran) 4 mg IV Q6H PRN PRN Reason: Nausea / Vomiting Stop: 08/19/17 20:48 Quetiapine Fumarate (Seroquel) 25 mg PO HS KRISH PRN Reason: Protocol Stop: 08/21/17 20:59 Last Admin: 06/22/17 22:45 Dose: 25 mg Quetiapine Fumarate (Seroquel) 12.5 mg PO DAILY KRISH PRN Reason: Protocol Stop: 08/21/17 08:59 Last Admin: 06/23/17 08:55 Dose: 12.5 mg Sodium Chloride (Nacl Tab) 1 gm PO BID KRISH Stop: 08/21/17 16:59 Last Admin: 06/23/17 08:42 Dose: 1 gm General: No acute distress, Mild distress, Moderate distress Cardiovascular: Regular rate Lungs: Other (few rales) Assessment/Plan - Assessment Assessment: Acute COPD exacerbation Hyponatremia possibly 2ndary to excess fluid intake Hypothyroidism Chronic smoker Debility homelessness - Plan Plan: Limit fluid intake IV steroids HHN Rocephine Monitor you OWENS plan for SNIF in progress Patient aware Plan of care discussed with nurse and CM
== END 2017-06-23 11:45 | DRG 871 ==
LOC: ER 08:47 → TELE 10:40
PROVIDERS: ADMIT Family Medicine; ATTEND Family Medicine
DX: A41.9 Sepsis, unspecified organism (principal); J18.9 Pneumonia, unspecified organism; E46 Unspecified protein-calorie malnutrition; D64.9 Anemia, unspecified; J44.0 Chronic obstructive pulmonary disease with (acute) lower respiratory infection; E86.0 Dehydration; J44.1 Chronic obstructive pulmonary disease with (acute) exacerbation; E87.1 Hypo-osmolality and hyponatremia; E03.9 Hypothyroidism, unspecified; F17.210 Nicotine dependence, cigarettes, uncomplicated; F29 Unspecified psychosis not due to a substance or known physiological condition; F39 Unspecified mood [affective] disorder; I10 Essential (primary) hypertension; Z71.6 Tobacco abuse counseling; Z59.0 Homelessness
CPT/HCPCS: 36415-UA; 36600-90; 71010-TC; 71020-TC; 80048-TC; 80053-TC; 80061-TC; 80307; 80320-TC; 80329-TC; 81001-TC; 82140-TC; 82248-TC; 82550-TC; 82553; 82803-TC; 83036-90; 83540-90; 83550-90; 83605; 83735-TC; 83880-TC; 83930-90; 83935-90; 84100-TC; 84133-TC; 84300-TC; 84439-90; 84443-TC; 84479-90; 84484-TC; 84550-TC; 85007-TC; 85027-TC; 85610-TC; 85730-TC; 86592-TC; 87070; 90779; 93005; 94640; 94760; J0696; J1940; J1956; J2920; J2930; J7030; J7131; Z7610

== ENCOUNTER 2019-01-01 10:51 | Inpatient (IN) | payer MEDICARE, MEDICAID ==
[2019-01-01] MEDS ORDERED: Sodium Chloride 0.9% 1,000 ML IV ONE (11:13)
--- NOTE | 2019-01-01 11:19 | ED Physician Chart ---
ED Chief Complaint/HPI - Patient Information Date Seen:: 01/01/19 Time Seen:: 11:00 Chief Complaint:: Cough History of Present Illness:: onset x 3 days of fever, cough, and congestion; no report of trauma, H/As, neck pain, C/P, SOB, Abd. Pain, or urinary s/s Allergies:: Allergies Allergy/AdvReac Type Severity Reaction Status Date / Time No Known Allergies Allergy Verified 01/01/19 11:08 Historian:: Patient, Family Member Review:: Nurse's Note Reviewed, Old Chart Reviewed ED Review of Systems - Review of Systems General/Constitutional: No fever, No chills, No weight loss, No weakness, No diaphoresis, No edema, No loss of appetite Skin: No skin lesions, No rash, No bruising Head: No headache, No light-headedness Eyes: No loss of vision, No pain, No diplopia ENT: No earache, No nasal drainage, No sore throat, No tinnitus Neck: No neck pain, No swelling, No thyromegaly, No stiffness, No mass noted Cardio Vascular: No chest pain, No palpitations, No PND, No orthopnea, No edema Pulmonary: SOB, Cough, No sputum, Wheezing GI: No nausea, No vomiting, No diarrhea, No pain, No melena, No hematochezia, No constipation, No hematemesis G/U: No dysuria, No frequency, No hematuria, No nacturia Accident Investigator: No vaginal discharge, No abnormal vaginal bleed, No contraction Musculoskeletal: No bone or joint pain, No back pain, No muscle pain Endocrine: No polyuria, No polydipsia Psychiatric: No prior psych history, No depression, No anxiety, No suicidal ideation, No homicidal ideation, No auditory hallucination, No visual hallucination Hematopoietic: No bruising, No lymphadenopathy Allergic/Immuno: No urticaria, No angioedema Neurological: No syncope, No focal symptoms, No weakness, No paresthesia, No headache, No seizure, No dizziness, No confusion, No vertigo ED Past Medical History - Past Medical History Obtainable: Yes Past Medical History: HTN, Asthma/COPD, Thyroid disorder Family History: HTN Social History: Smoker, Alcohol, Illicit Drug Use, Surgical History: None Psychiatricy History: None Medication: Reviewed Family Medical History - Family Member Mother History Unknown: Yes Hx Family Cancer: No Hx Family Coronary Artery Disease: No Hx Family Congestive Heart Failure: No Hx Family Hypertension: No Hx Family Stroke: No Hx Family Diabetes: No Hx Family Seizures: No Hx Family Hepatitis: No Hx Family Psychiatric Problems: No ED Physical Exam - Physical Examination General/Constitutional: Awake, Well-developed, well-nourished, Alert, No distress, GCS 15, Non-toxic appearing, Ambulatory Head: Atraumatic Eyes: Lids, conjuctiva normal, PERRL, EOMI Skin: Nl inspection, No rash, No skin lesions, No ecchymosis, Well hydrated, No lymphadenopathy ENMT: External ears, nose nl, TM canals nl, Nasal exam nl, Lips, teeth, gums nl , Oropharynx nl, Tonsils nl Neck: Nontender, Full ROM w/o pain, No JVD, No nuchal rigidity, No bruit, No mass, No stridor Respiratory: Nl effort/Exclusion, Clear to Auscultation, No Wheeze/Rhonchi/Rales Cardio Vascular: RRR, No murmur, gallop, rubs, NL S1 S2, Carotid/Femoral/Distal pulses equal bilaterally GI: No tenderness/rebounding/guarding, No organomegaly, No hernia, Normal BS's, Nondistended, No mass/bruits, No McBurney tenderness : No CVA tenderness Extremities: No tenderness or effusion, Full ROM, normal strength in all extremities, No edema, Normal digits & nails Neuro/Psych: Alert/oriented, DTR's symmetric, Normal sensory exam, Normal motor strength, Judgement/insight normal, Mood normal, Normal gait, No focal deficits Misc: Normal back, No paraspinal tenderness ED Labs/Radiology/EKG Results - Lab Results Comments:: Reviewed - Radiology Results Comments:: NAD - EKG Interpretations EKG Time:: 11:21 Rate & Rhythm: 57; SB Comments:: PACs; non-specific st-t changes ED Septic Shock - . Is Septic Shock (SBP<90, OR Lactate>4 mmol\L) present?: No ED Reassessment (Disposition) - Reassessment Reassessment Condition:: Improved - Diagnosis Diagnosis:: Cough; Hyponatremia; Dehydration; Anemia; Elevated LFTs - Aftercare/Follow up Instructions Aftercare/Follow-Up Instructions:: Counseled pt regarding lab results/diagnosis & need follow up, Counseled pt & family regarding lab results/diagnosis & need follow up - Patient Disposition Discharge/Transfer:: Acute Care w/in this hosp Accepting Physician:: Dr. Christy Time Called:: 1300 Time Responded:: 13:00 Admitted to:: Telemetry Spoke to:: Dr. Christy Admitting Medical Physician:: Dr. Christy Condition at Disposition:: Stable, Improved
[2019-01-01 11:38] LABS: % BASOPHILS 0.7 % (0.0-2.0); % EOSINOPHILS 1.6 % (0.0-5.0); % LYMPHOCYTES 23.1 % (20.0-50.0); % MONOCYTES 6.6 % (2.0-10.0); BASOPHILE ABSOLUTE 0.1 Th/cumm (0-0.2); EOSINOPHILE ABSOLUTE 0.1 Th/cmm (0.1-0.4); HEMATOCRIT 32.7 % (41.0-60); HEMOGLOBIN 11.2 gm/dL (12-16); LYMPHOCYTE ABSOLUTE 2.1 Th/cmm (1.5-3.0); MEAN CELL VOLUME 86.6 fl (81-100); MEAN CORPUSCULAR HEMOGLOBIN 29.6 pg (27.0-31.0); MEAN CORPUSCULAR HGB CONC 34.2 pg (28.0-36.0); MEAN PLATELET VOLUME 6.9 fl; MONOCYTE ABSOLUTE 0.6 Th/cmm (0.3-1.0); NEUTROPHILE ABSOLUTE 6.4 Th/cmm (1.8-8.0); PLATELET COUNT 273 Th/cmm (150-400); RED BLOOD COUNT 3.77 Mil/cmm (3.80-5.20); RED CELL DISTRIBUTION WIDTH 14.8 % (11.5-20.0); WHITE BLOOD COUNT 9.3 Th/cmm (4.8-10.8)
[2019-01-01 11:47] LABS: INR 0.96 (0.5-1.4)
[2019-01-01 11:57] LABS: ALB/GLOB RATIO 1.2 (1.0-1.8); ALBUMIN 3.7 gm/dL (3.7-5.3); ALKALINE PHOSPHATASE 91 U/L (34-104); AMYLASE SERUM 30 U/L (29-103); ANION GAP 13.6 (7.0-16.0); BILIRUBIN,TOTAL 0.7 mg/dL (0.3-1.0); BUN - UREA NITROGEN 12 mg/dL (7-25); CALCIUM SERUM 8.9 mg/dL (8.6-10.3); CARBON DIOXIDE 22.3 mEq/L (21.0-31.0); CHLORIDE 93 mEq/L (98-107); CREATININE - SERUM 0.9 mg/dL (0.6-1.2); CREATININE KINASE 1361 U/L (30-223); GLUCOSE 101 mg/dL (70-105); LIPASE 20 U/L (11-82); POTASSIUM SERUM 3.9 mEq/L (3.5-5.1); SGOT 80 U/L (13-39); SGPT/ALT 75 U/L (7-52); SODIUM SERUM 125 mEq/L (136-145); TOTAL PROTEIN,SERUM 6.7 gm/dL (6.0-8.3)
[2019-01-01 12:26] LABS: URINE SOURCE MIDSTREAM
[2019-01-01 12:28] LABS: URINE BILIRUBIN NEGATIVE (NEGATIVE); URINE BLOOD TRACE (NEGATIVE); URINE GLUCOSE (UA) NEGATIVE (NEGATIVE); URINE KETONE 15 mg/dL (NEGATIVE); URINE LEUKOCYTE ESTERASE NEGATIVE (NEGATIVE); URINE MICROSCOPIC INDICATED? YES; URINE NITRATE NEGATIVE (NEGATIVE); URINE PROTEIN NEGATIVE (NEGATIVE); URINE UROBILINOGEN 0.2 E.U./dL (0.2 - 1.0)
[2019-01-01 12:31] LABS: URINE CLARITY HAZY (CLEAR); URINE COLOR YELLOW
[2019-01-01 12:35] LABS: TROP I 0.01 ng/mL (0.01-0.05)
[2019-01-01 13:24] LABS: URINE RBC 0-2 /hpf (0-5); URINE WBC 0-2 /hpf (0-5)
[2019-01-01 13:25] LABS: URINE BACTERIA FEW /hpf (NONE SEEN); URINE EPITHELIAL CELLS FEW /lpf (FEW)
[2019-01-01 13:31] LABS: ALLEN TEST YES; PaCO2 35.1 mmHg (35.0-45.0); PaO2 83.7 mmHg (80.0-100.0); pH 7.387 (7.35-7.45); sO2c 96.2 % (92.0-100.0)
[2019-01-01 13:35] LABS: AMPHETAMINE URINE NEGATIVE (NEGATIVE); BARBITURATES URINE NEGATIVE (NEGATIVE); BENZODIAZEPINES QUAL URINE NEGATIVE (NEGATIVE); CANNABINOID THC NEGATIVE (NEGATIVE); COCAINE METABOLITE QUAL URINE NEGATIVE (NEGATIVE); METHADONE URINE NEGATIVE (NEGATIVE); METHAMPHETAMINES QUAL URINE NEGATIVE (NEGATIVE); OPIATES (MORPHINE) QUAL. URINE NEGATIVE (NEGATIVE); PHENCYCLIDINE (PCP) URINE NEGATIVE (NEGATIVE); TRICYCLICS (TCA) QUAL. URINE NEGATIVE (NEGATIVE)
--- NOTE | 2019-01-01 13:40 | Diagnostic Imaging Report ---
CT scan of the brain without intravenous contrast HISTORY: Stroke, CVA Total DLP equals 619 CTDI equals 35.4 Axial sections were obtained from the base of the skull to the vertex. There is a normal ventricular system size for age. Hypodensity is noted within the supratentorial white matter regions. No mass effect. The findings may be associated with chronic small vessel ischemic disease. No acute parenchymal abdomen amenities. No intracerebral hemorrhage. Again, no mass effect or shift of midline structures. No extra-axial masses or abnormal fluid collections. Sclerotic change along with fluid seen within the region of the mastoid air cells on the left side. Findings consistent with inflammatory change. IMPRESSION: 1. No acute intracerebral abnormalities 2. Supratentorial white matter changes as noted above. The findings may be associated with chronic small vessel ischemic disease. 3. Sclerotic change along with evidence fluid in the vicinity of the left mastoid air cells. Findings consistent with inflammatory change.
--- NOTE | 2019-01-01 13:40 | Diagnostic Imaging Report ---
Portable chest x-ray History: Pain Allowing for portable technique the heart size is normal. No focal pulmonary parenchymal processes. No hilar or mediastinal abnormalities. Impression: No acute abnormalities.
[2019-01-01] MEDS ORDERED: Acetaminophen 500 MG TAB PO PRN (15:37)
[2019-01-01] MEDS ORDERED: Sodium Chloride 0.9% 1,000 ML IV SCH ×2 (15:37→19:30)
[2019-01-01 16:16] VITALS: BP 149/74
[2019-01-02 05:38] LABS: ALB/GLOB RATIO 1.3 (1.0-1.8); ALBUMIN 3.5 gm/dL (3.7-5.3); ALKALINE PHOSPHATASE 87 U/L (34-104); ANION GAP 13.4 (7.0-16.0); BILIRUBIN,TOTAL 0.4 mg/dL (0.3-1.0); BUN - UREA NITROGEN 15 mg/dL (7-25); CARBON DIOXIDE 23.4 mEq/L (21.0-31.0); CHLORIDE 99 mEq/L (98-107); CREATININE - SERUM 0.9 mg/dL (0.6-1.2); GLUCOSE 103 mg/dL (70-105); PHOSPHOROUS 3.6 mg/dL (2.5-5.0); POTASSIUM SERUM 3.8 mEq/L (3.5-5.1); SGOT 52 U/L (13-39); SGPT/ALT 60 U/L (7-52); SODIUM SERUM 132 mEq/L (136-145); TOTAL PROTEIN,SERUM 6.3 gm/dL (6.0-8.3)
--- NOTE | 2019-01-02 13:17 | Diagnostic Imaging Report ---
Renal ultrasound HISTORY: Hyponatremia The right kidney measures 9.1 x 4.0 x 5.1 cm. No focal lesions. No hydronephrosis. The left kidney measures 9.9 x 4.6 x 6.5 cm. 1.5 cm sonolucent lesion consistent with a cyst is seen within the lower pole. No hydronephrosis. IMPRESSION: 1. Findings consistent with a left renal cyst 2. No other significant abnormalities
[2019-01-02] MEDS ORDERED: Sodium Chloride 3% 250 ML IV SCH (16:45)
[2019-01-02] MEDS ORDERED: Sodium Chloride 3% 250 ML IV ONE (17:45)
--- NOTE | 2019-01-02 18:55 | Consultation ---
DATE OF CONSULTATION: 01/01/2019 RENAL CONSULTATION LOCATION: [facility], room #9, [place]. ATTENDING PHYSICIAN: Dr. Christy. I thank you very much, Dr. Christy for this consult. INDICATIONS: This is a 73-year-old female patient. History has been taken from the patient and by reviewing the chart and discussing with Emergency Room physician and nurse. HISTORY OF PRESENT ILLNESS: A 73-year-old female patient who was brought into the Emergency Room with complaint of 3 days of fever, cough, and shortness of breath, and had complained of body ache. The patient was found to have hyponatremia, possible UTI, pneumonia, and CHF. The patient has been admitted for further treatment. Renal consultation has been requested for hyponatremia. There is no history of any seizures, loss of consciousness. The patient does have history of excessive water intake since she started having cough, fever, and anorexia. No history of hematuria or melena. No history of vomiting or diarrhea. PAST MEDICAL AND SURGICAL HISTORY: History of hypertension, history of COPD, hypothyroidism, and asthma. SOCIAL HISTORY: No history of alcoholism. The patient is a smoker. No history of drug use. The patient is . PREVIOUS SURGERIES: None. MEDICATIONS AT HOME: Include levothyroxine, Tylenol, Pepcid, and some unknown medication for hypertension. PHYSICAL EXAMINATION: GENERAL: A 73-year-old female patient, conscious, alert, but confused at times. VITAL SIGNS: Temperature 99, pulse 60, blood pressure 135/59. Initial blood pressure was as low as 109/71. Intake and output not well documented. HEAD: Normocephalic, atraumatic. EYES: Sclerae is nonicteric. Conjunctivae are pink. Pupils are reactive. EAR, NOSE, THROAT: No bleeding or discharge. NECK: No stiffness. Jugular venous pressure not distended. Thyroid normal. LUNGS: Good air entry. No rales or rhonchi on the right side. Left base few rhonchi. HEART: Regular, no rub or gallop. ABDOMEN: Soft, nondistended, positive bowel sounds present. EXTREMITIES: No edema. LABORATORY DATA: Sodium 125, potassium 3.9, chloride 93, CO2 22, BUN 12, creatinine 0.9, calcium 8.9. WBC 9.3 and hemoglobin 11.2. Urinalysis: Urine nitrite negative, urine WBC and esterase negative. ASSESSMENT: 1. Hyponatremia. 2. History of hypertension, at this time hypotensive. 3. Hypothyroidism. PLAN: The patient has been started on NS IV. I will give Lasix 40 mg IV one time to increase free water clearance. The patient's BUN and creatinine are normal to low, suggestive of hyponatremia secondary to excess water intake. We will also check T3 and TSH. Check BMP. Check phosphorus, magnesium, if those are low, then dose will be corrected. I will follow this patient with you. I thank you very much, Dr. Christy for this consult. JOB# [id number]
--- NOTE | 2019-01-03 00:28 | Consultation ---
DATE OF CONSULTATION: 01/02/[address] Fantasma Christy. HISTORY AND PHYSICAL: This is a 73-year-old female patient who has been complaining of shortness of breath, cough. Following this, the patient came to the Emergency Room. The patient was found to have hyponatremia with severe bradycardia and hence cardiac consult is requested. PAST MEDICAL HISTORY: COPD, asthma, hypertension, alcoholic hepatitis, nicotine dependence, iron deficiency anemia, osteoporosis. FAMILY HISTORY: Unremarkable. SOCIAL HISTORY: The patient has a history of smoking and alcohol use. ALLERGIES: None. PHYSICAL EXAMINATION: VITAL SIGNS: Blood pressure is 126/67, pulse 50, respirations 28. HEAD: Normocephalic. No lumps or bumps. EYES: Pupils equal, reactive to light. Fundi show AV nicking, sclerae white, conjunctivae pink. NECK: Carotid 2+. Normal upstroke. JVD flat. Thyroid not palpable. Lymph nodes not palpable. CHEST: Shows increased AP diameter. No kyphosis, scoliosis. LUNGS: Bilateral bronchovesicular breath sounds. Occasional wheeze. No rales. HEART: PMI fifth intercostal space with lateral to midclavicular line. S1, S2. No S3, S4, soft systolic murmur. ABDOMEN: Soft. Liver, spleen not palpable. No organomegaly. Bowel sounds active. NEUROLOGIC: Unremarkable. EXTREMITIES: Peripheral pulses 2+. No pedal edema. The patient had echocardiogram, which showed ejection fraction 71% with mild mitral regurgitation, aortic regurgitation and tricuspid regurgitation. Right ventricular systolic pressure is 36 mmHg. CONCLUSION: 1. Hyponatremia. 2. Sinus bradycardia. 3. Hypertension. 4. Asthma. 5. COPD. 6. Alcoholic hepatitis, nicotine dependence. 7. Iron deficiency anemia. 8. Osteoporosis. PLAN: The patient to continue present management with normal saline and hold the diuretics at the present time. JOB# [id number]
--- NOTE | 2019-01-03 19:29 | Cardiology ---
01/01/[address] Jaelyn Meek. PROCEDURE: Echocardiogram. M-MODE ECHOCARDIOGRAM: Mitral valve, anterior leaflet of mitral valve shows normal excursion, EF velocity. Posterior leaflet of the mitral valve shows normal excursion. Left ventricular posterior wall shows increased thickness, normal excursion. Interventricular septum showed normal thickness, and ejection fraction 71%. Left atrium normal. Aortic root shows normal dimension, normal excursion of aortic leaflets. CONCLUSION: Normal M-mode echo, ejection fraction 71%. 2D ECHO: Long axis view showed normal sized left ventricle with normal wall motion, mitral valve shows normal excursion. Left atrium normal. Aortic root shows normal dimension, normal excursion of aortic leaflets. Short axis view of mitral valve normal. Short axis view of apical valve normal. Apical four chamber view showed normal sized left ventricle, left atrium, right ventricle, right atrium, tricuspid and mitral valve. Ejection fraction 71%. CONCLUSION: Normal 2D echo, ejection fraction 71%. Doppler study shows moderate mitral regurgitation, mild aortic regurgitation, mild tricuspid regurgitation, right ventricular systolic pressure 36 mmHg. JOB# [id number]
== END 2019-01-02 20:07 | disposition left against medical advice (07) | DRG 309 ==
LOC: ER 10:51 → TELE 14:13
PROVIDERS: ADMIT Family Medicine; ATTEND Family Medicine
DX: R00.1 Bradycardia, unspecified (principal); E87.1 Hypo-osmolality and hyponatremia; I10 Essential (primary) hypertension; J44.9 Chronic obstructive pulmonary disease, unspecified; E86.0 Dehydration; D64.9 Anemia, unspecified; R94.5 Abnormal results of liver function studies; K70.10 Alcoholic hepatitis without ascites; I95.9 Hypotension, unspecified; D50.9 Iron deficiency anemia, unspecified; M81.0 Age-related osteoporosis without current pathological fracture; E03.9 Hypothyroidism, unspecified; F17.210 Nicotine dependence, cigarettes, uncomplicated
CPT/HCPCS: 36415-UA; 36600-90; 70450-TC; 71045-TC; 76770-TC; 80053-TC; 80307; 81001-TC; 82150-TC; 82550-TC; 82553; 82803-TC; 83605; 83690-TC; 84100-TC; 84443-TC; 84484-TC; 85025-TC; 85610-TC; 85730-TC; 93005; J1940; J7030; J7131

== ENCOUNTER 2019-01-08 12:19 | Inpatient (IN) | payer MEDICARE, MEDICAID ==
--- NOTE | 2019-01-08 12:43 | ED Physician Chart ---
ED Chief Complaint/HPI - Patient Information Date Seen:: 01/08/19 Time Seen:: 12:42 Chief Complaint:: Agitation History of Present Illness:: 73 yo female with history of COPD and hypothyroidism was brought by friend and roommate from home to ER for evaluation of increased agitation and aggressiveness for 2 weeks. Pt was not able to be directed. Allergies:: Allergies Allergy/AdvReac Type Severity Reaction Status Date / Time No Known Allergies Allergy Verified 01/08/19 12:34 Vitals:: Vital Signs - 8 hr 01/08/19 12:34 Temp 97.2 F HR 59 RR 18 BP 143/85 O2 Sat % 95 ED Review of Systems - Review of Systems General/Constitutional: No fever Skin: No rash Head: No headache Eyes: No pain ENT: No nasal drainage Neck: No neck pain Cardio Vascular: No chest pain Pulmonary: No SOB GI: No nausea, No vomiting Musculoskeletal: No bone or joint pain Neurological: No syncope, No weakness ED Past Medical History - Past Medical History Past Medical History: Asthma/COPD, Thyroid disorder (Hypothyroidism) Social History: Smoker, No Alcohol, No Drug Use Family Medical History - Family Member Mother History Unknown: Yes Living Status: Hx Family Cancer: No Hx Family Coronary Artery Disease: No Hx Family Congestive Heart Failure: No Hx Family Hypertension: No Hx Family Stroke: No Hx Family Diabetes: No Hx Family Seizures: No Hx Family Hepatitis: No Hx Family Psychiatric Problems: No Father History Unknown: Yes Living Status: ED Physical Exam - Physical Examination General/Constitutional: Awake Head: Atraumatic Eyes: PERRL, EOMI Skin: No skin lesions ENMT: Nasal exam nl Neck: No nuchal rigidity Respiratory: Clear to Auscultation Cardio Vascular: RRR, No murmur, gallop, rubs, NL S1 S2 GI: No tenderness/rebounding/guarding Extremities: normal strength in all extremities Neuro/Psych: Alert/oriented ED Labs/Radiology/EKG Results - Lab Results Results: Laboratory Last Values WBC 7.3 Th/cmm (4.8-10.8) 01/08/19 12:50 RBC 3.87 Mil/cmm (3.80-5.20) 01/08/19 12:50 Hgb 11.3 gm/dL (12-16) L 01/08/19 12:50 Hct 34.4 % (41.0-60) L 01/08/19 12:50 MCV 88.8 fl (81-100) 01/08/19 12:50 MCH 29.2 pg (27.0-31.0) 01/08/19 12:50 MCHC Differential 32.9 pg (28.0-36.0) 01/08/19 12:50 RDW 14.0 % (11.5-20.0) 01/08/19 12:50 Plt Count 252 Th/cmm (150-400) 01/08/19 12:50 MPV 6.8 fl 01/08/19 12:50 Neutrophils % 54.4 % (40.0-80.0) 01/08/19 12:50 Lymphocytes % 33.7 % (20.0-50.0) 01/08/19 12:50 Monocytes % 7.0 % (2.0-10.0) 01/08/19 12:50 Eosinophils % 3.8 % (0.0-5.0) 01/08/19 12:50 Basophils % 1.1 % (0.0-2.0) 01/08/19 12:50 Sodium 130 mEq/L (136-145) L 01/08/19 12:50 Potassium 3.9 mEq/L (3.5-5.1) 01/08/19 12:50 Chloride 100 mEq/L (98-107) 01/08/19 12:50 Carbon Dioxide 23.2 mEq/L (21.0-31.0) 01/08/19 12:50 Anion Gap 10.7 (7.0-16.0) 01/08/19 12:50 BUN 12 mg/dL (7-25) 01/08/19 12:50 Creatinine 1.0 mg/dL (0.6-1.2) 01/08/19 12:50 Est GFR ( Amer) TNP 01/08/19 12:50 Est GFR (Non-Af Amer) TNP 01/08/19 12:50 BUN/Creatinine Ratio 12.0 01/08/19 12:50 Glucose 135 mg/dL (70-105) H 01/08/19 12:50 Calcium 9.0 mg/dL (8.6-10.3) 01/08/19 12:50 Total Bilirubin 0.5 mg/dL (0.3-1.0) 01/08/19 12:50 AST 31 U/L (13-39) 01/08/19 12:50 ALT 31 U/L (7-52) 01/08/19 12:50 Alkaline Phosphatase 95 U/L (34-104) 01/08/19 12:50 Creatine Kinase 469 U/L (30-223) H 01/08/19 12:50 CK-MB (CK-2) 14.5 ng/mL (0.6-6.3) H 01/08/19 12:50 Troponin I 0.01 ng/mL (0.01-0.05) 01/08/19 12:50 Total Protein 6.5 gm/dL (6.0-8.3) 01/08/19 12:50 Albumin 3.9 gm/dL (3.7-5.3) 01/08/19 12:50 Globulin 2.6 gm/dL 01/08/19 12:50 Albumin/Globulin Ratio 1.5 (1.0-1.8) 01/08/19 12:50 TSH 7.32 uIU/ml (0.34-5.60) H 01/08/19 12:50 Urine Source MIDSTREAM 01/08/19 12:35 Urine Color YELLOW 01/08/19 12:35 Urine Clarity CLEAR (CLEAR) 01/08/19 12:35 Urine pH 6.5 (4.6 - 8.0) 01/08/19 12:35 Ur Specific [place] <= 1.005 (1.005-1.030) 01/08/19 12:35 Urine Protein NEGATIVE mg/dL (NEGATIVE) 01/08/19 12:35 Urine Glucose (UA) NEGATIVE mg/dL (NEGATIVE) 01/08/19 12:35 Urine Ketones NEGATIVE mg/dL (NEGATIVE) 01/08/19 12:35 Urine Blood NEGATIVE (NEGATIVE) 01/08/19 12:35 Urine Nitrate NEGATIVE (NEGATIVE) 01/08/19 12:35 Urine Bilirubin NEGATIVE (NEGATIVE) 01/08/19 12:35 Urine Urobilinogen 0.2 E.U./dL (0.2 - 1.0) 01/08/19 12:35 Ur Leukocyte Esterase NEGATIVE (NEGATIVE) 01/08/19 12:35 Urine RBC 0-2 /hpf (0-5) 01/08/19 12:35 Urine WBC 2-5 /hpf (0-5) 01/08/19 12:35 Ur Epithelial Cells MODERATE /lpf (FEW) 01/08/19 12:35 Urine Bacteria FEW /hpf (NONE SEEN) 01/08/19 12:35 Urine Opiates Screen NEGATIVE (NEGATIVE) 01/08/19 12:35 Urine Methadone Screen NEGATIVE (NEGATIVE) 01/08/19 12:35 Ur Barbiturates Screen NEGATIVE (NEGATIVE) 01/08/19 12:35 Ur Tricyclics Screen NEGATIVE (NEGATIVE) 01/08/19 12:35 Ur Phencyclidine Scrn NEGATIVE (NEGATIVE) 01/08/19 12:35 Amphetamines Screen NEGATIVE (NEGATIVE) 01/08/19 12:35 U Methamphetamines Scrn NEGATIVE (NEGATIVE) 01/08/19 12:35 U Benzodiazepines Scrn NEGATIVE (NEGATIVE) 01/08/19 12:35 U Cocaine Metab Screen NEGATIVE (NEGATIVE) 01/08/19 12:35 U Cannabinoids Screen NEGATIVE (NEGATIVE) 01/08/19 12:35 - Radiology Results Results: CXR: No focal consolidation ED Assessment - Assessment General Assessment: COPD Hypothyroidism Anemia, normocytic Hyponatremia Psychosis Assessment/Comments:: CBC, CMP, UA CXR, EKG [facility] and [facility] ED Septic Shock - . Is Septic Shock (SBP<90, OR Lactate>4 mmol\L) present?: No - <6hrs of presentation: Vital Signs: Vital Signs - 8 hr 01/08/19 12:34 Temp 97.2 F HR 59 RR 18 BP 143/85 O2 Sat % 95 ED Reassessment (Disposition) - Reassessment Reassessment Condition:: Unchanged - Patient Disposition Discharge/Transfer:: Shilo w/in this hosp Admitting Psych Physician:: Miles Zuñiga
[2019-01-08 13:02] LABS: % BASOPHILS 1.1 % (0.0-2.0); % EOSINOPHILS 3.8 % (0.0-5.0); % LYMPHOCYTES 33.7 % (20.0-50.0); % NEUTROPHILS 54.4 % (40.0-80.0); BASOPHILE ABSOLUTE 0.1 Th/cumm (0-0.2); EOSINOPHILE ABSOLUTE 0.3 Th/cmm (0.1-0.4); HEMATOCRIT 34.4 % (41.0-60); HEMOGLOBIN 11.3 gm/dL (12-16); LYMPHOCYTE ABSOLUTE 2.5 Th/cmm (1.5-3.0); MEAN CELL VOLUME 88.8 fl (81-100); MEAN CORPUSCULAR HEMOGLOBIN 29.2 pg (27.0-31.0); MEAN CORPUSCULAR HGB CONC 32.9 pg (28.0-36.0); MEAN PLATELET VOLUME 6.8 fl; MONOCYTE ABSOLUTE 0.5 Th/cmm (0.3-1.0); NEUTROPHILE ABSOLUTE 3.9 Th/cmm (1.8-8.0); PLATELET COUNT 252 Th/cmm (150-400); RED BLOOD COUNT 3.87 Mil/cmm (3.80-5.20); WHITE BLOOD COUNT 7.3 Th/cmm (4.8-10.8)
[2019-01-08 13:16] LABS: ALB/GLOB RATIO 1.5 (1.0-1.8); ALBUMIN 3.9 gm/dL (3.7-5.3); ALKALINE PHOSPHATASE 95 U/L (34-104); ANION GAP 10.7 (7.0-16.0); BILIRUBIN,TOTAL 0.5 mg/dL (0.3-1.0); BUN - UREA NITROGEN 12 mg/dL (7-25); CARBON DIOXIDE 23.2 mEq/L (21.0-31.0); CHLORIDE 100 mEq/L (98-107); CREATININE KINASE 469 U/L (30-223); GLUCOSE 135 mg/dL (70-105); POTASSIUM SERUM 3.9 mEq/L (3.5-5.1); SGOT 31 U/L (13-39); SGPT/ALT 31 U/L (7-52); SODIUM SERUM 130 mEq/L (136-145); TOTAL PROTEIN,SERUM 6.5 gm/dL (6.0-8.3)
--- NOTE | 2019-01-08 13:27 | Diagnostic Imaging Report ---
CHEST X-RAY: AP view INDICATION: Shortness of breath COMPARISON: 01/01/2019 FINDINGS: Mild increased interstitial lung markings are noted. There is no focal consolidation or pleural effusions . There is mild cardiomegaly. Degenerative changes of the spine are noted with scoliosis. IMPRESSION: Mild increased interstitial lung markings. Findings are probably chronic. A marginal degree of congestion is less likely No focal consolidation. Mild cardiomegaly.
[2019-01-08 13:43] LABS: URINE SOURCE MIDSTREAM
[2019-01-08 13:47] LABS: URINE BILIRUBIN NEGATIVE (NEGATIVE); URINE BLOOD NEGATIVE (NEGATIVE); URINE GLUCOSE (UA) NEGATIVE (NEGATIVE); URINE KETONE NEGATIVE (NEGATIVE); URINE LEUKOCYTE ESTERASE NEGATIVE (NEGATIVE); URINE NITRATE NEGATIVE (NEGATIVE); URINE PH 6.5 (4.6 - 8.0); URINE PROTEIN NEGATIVE (NEGATIVE); URINE UROBILINOGEN 0.2 E.U./dL (0.2 - 1.0)
[2019-01-08 13:48] LABS: URINE CLARITY CLEAR (CLEAR); URINE COLOR YELLOW
[2019-01-08 13:49] LABS: URINE MICROSCOPIC INDICATED? YES
[2019-01-08 14:04] LABS: AMPHETAMINE URINE NEGATIVE (NEGATIVE); BARBITURATES URINE NEGATIVE (NEGATIVE); BENZODIAZEPINES QUAL URINE NEGATIVE (NEGATIVE); CANNABINOID THC NEGATIVE (NEGATIVE); COCAINE METABOLITE QUAL URINE NEGATIVE (NEGATIVE); METHADONE URINE NEGATIVE (NEGATIVE); METHAMPHETAMINES QUAL URINE NEGATIVE (NEGATIVE); OPIATES (MORPHINE) QUAL. URINE NEGATIVE (NEGATIVE); PHENCYCLIDINE (PCP) URINE NEGATIVE (NEGATIVE); TRICYCLICS (TCA) QUAL. URINE NEGATIVE (NEGATIVE)
[2019-01-08 14:13] LABS: URINE BACTERIA FEW /hpf (NONE SEEN); URINE EPITHELIAL CELLS MODERATE /lpf (FEW); URINE RBC 0-2 /hpf (0-5)
[2019-01-08 16:14] VITALS: BP 129/61
[2019-01-08] MEDS ORDERED: Maalox 30 mL Cup PO PRN (16:26)
[2019-01-08] MEDS ORDERED: Magnesium Hydroxide (MOM) 30 mL UDC PO PRN (16:26)
[2019-01-09] MEDS ORDERED: Levothyroxine 0.05 Mg Tab PO SCH (07:30)
[2019-01-09] MEDS: Multivitamin Tab PO SCH (08:16)
[2019-01-09 08:38] LABS: CHOLESTEROL 179 mg/dL (<200); HDL -HIGH DENSITY LIPOPROTEIN 54 mg/dL (23-92); TRIGLYCERIDES 91 mg/dL (<150)
[2019-01-09] MEDS ORDERED: Albuterol Nebulizer 2.5mg/3mL HHN PRN (18:01)
[2019-01-09] MEDS: Budesonide 0.5 Mg/2 mL Ud HHN SCH (19:58)
--- NOTE | 2019-01-10 02:04 | History & Physical ---
ADMIT DATE: 01/08/2019 REASON FOR ADMISSION: Psychiatric disorders. HISTORY OF PRESENT ILLNESS: This is a 73-year-old female with known history of hypothyroidism and psychiatric disorders who was admitted to Geropsych Unit for ____. The patient complained of cough, no mucus, no fever, but she has trouble breathing. She is chronic smoker and also underlying history of COPD. PAST MEDICAL HISTORY: Hypothyroidism, COPD, mental disorders. PAST SURGICAL HISTORY: No significant past surgical history. FAMILY HISTORY: Noncontributory. SOCIAL HISTORY: Lives at home. Chronic smoker, negative alcohol and drug abuse. CURRENT MEDICATIONS: Medication reconciliation. ALLERGIES: No known drug allergies. REVIEW OF SYSTEMS: As per HPI, 12-point system is negative. PHYSICAL EXAMINATION: VITAL SIGNS: Temperature 97.6, pulse rate is 80, respirations 20, blood pressure of 94% on room air. HEENT: No neck stiffness. Negative rigidity. CHEST: Clear to auscultation. HEART: S1, S2 normal. LUNGS: Clear. ABDOMEN: Soft, nontender. NEUROLOGIC: The patient is awake, little confused, follows commands. EXTREMITIES: Negative for edema. LABORATORY DATA: Available laboratory. ASSESSMENT: 1. Hypothyroidism. 2. Chronic obstructive pulmonary disease. 3. Nicotine dependence. 4. Hypertension. 5. Psych disorder. PLAN: Psych management per psychiatrist. Continue levothyroxine, nebulizer treatment with albuterol, also Pulmicort started. Continue psychotropic medications. Smoking cessation advised. The patient is medically stable. JOB# [id number]
[2019-01-10] MEDS: Levothyroxine 0.1 Mg Tab PO SCH (06:40)
[2019-01-10] MEDS: Budesonide 0.5 Mg/2 mL Ud HHN SCH ×2 (07:27→19:52)
[2019-01-10] MEDS: Multivitamin Tab PO SCH (08:11)
--- NOTE | 2019-01-10 12:34 | Psychiatric Evaluation ---
DATE OF SERVICE: 01/09/2019 HISTORY OF PRESENT ILLNESS: A 73-year-old female with history of COPD, possibly schizophrenia, noted to be agitated, aggressive for the past 2 weeks, history of being on Risperdal, poor historian. The patient has a friend who is providing her with housing. The friend noting that the patient has been more confused, losing things, episodes of depression, worsening confusion, hoarding behaviors, taking trash and bringing into the home. The patient recently fired 2 weeks ago from the [employer]. The patient notes that she is perfectly fine and stating that she may leave the hospital if she does not see Dr. Fabio marie. Poor historian. Mood "fine". PAST PSYCHIATRIC HISTORY: Schizophrenia likely. SOCIAL: Living with a friend. MENTAL STATUS EXAMINATION: Stated age, disheveled, unkempt, poor eye contact, mumbling to self. Mood "okay." Affect flat. Thought processes were tangential. No overt SI or HI. Concerns for underlying psychosis. Insight and judgment seem somewhat diminished. PROVISIONAL DIAGNOSES: Likely schizophrenia, possibly dementia. MEDICAL: Please see full H and P. ESTIMATED LENGTH OF STAY: 7-10 days. ASSESSMENT: The patient requiring hospitalization for agitated, aggressive, bizarre behaviors. PLAN: Treatment plan includes group as well as milieu therapy. Restart Risperdal. CONDITIONS FOR DISCHARGE: Improved mood, improved affect, better control of her psychotic symptoms. [facility]# [id number]
[2019-01-11] MEDS: Promethazine DM 6.25/15mg-5mL 5 ML SYR PO PRN ×2 (01:13→20:12)
--- NOTE | 2019-01-11 03:41 | Progress Notes ---
DATE: 01/10/2019 SUBJECTIVE: A 73-year-old female with history of COPD, likely schizophrenia, have been aggressive, agitated and decompensated from a psychiatric standpoint, currently minimizing her symptoms, states she wants to leave, there is nothing wrong with her. ASSESSMENT: The patient is sometimes confused, disoriented, mumbling to self, withdrawn, isolative, ongoing concerns about psychosis and paranoias. PLAN: We will continue to monitor ongoing safety concerns, fair sleep, fair appetite. I will also be increasing the dosing of Risperdal. JOB# [id number]
[2019-01-11] MEDS: Levothyroxine 0.1 Mg Tab PO SCH (06:31)
[2019-01-11] MEDS: Budesonide 0.5 Mg/2 mL Ud HHN SCH ×2 (06:47→19:30)
[2019-01-11] MEDS: Multivitamin Tab PO SCH (08:51)
--- NOTE | 2019-01-11 18:30 | Progress Notes ---
DATE: 01/11/2019 SUBJECTIVE: The patient in the hospital, remains unruly, odd behaviors, very disheveled, unkempt, hoarding behaviors. The patient is very fixated on leaving, unaware of why she is here. She is pretty disorganized and bizarre. Fair sleep, fair appetite. Staff noting she is mostly collecting objects in trash, whispering to herself, bizarre, only slept about 3-1/2 hours in fact. PLAN: We will continue to monitor ongoing symptoms, psychotic symptoms, and odd symptoms. I will be increasing dosing of Risperdal. JOB# [id number]
[2019-01-12] MEDS: Budesonide 0.5 Mg/2 mL Ud HHN SCH ×2 (06:27→19:50)
[2019-01-12] MEDS: Levothyroxine 0.1 Mg Tab PO SCH (06:34)
[2019-01-12] MEDS: Multivitamin Tab PO SCH (09:13)
--- NOTE | 2019-01-12 20:53 | Progress Notes ---
DATE: 01/12/2019 SUBJECTIVE: The patient in the hospital odd behaviors, still hoarding behaviors, very fixated on leaving, disheveled, unkempt, somewhat confused as to why she is here, states that she is perfectly fine. There is nothing wrong with her, asking for snacks, wanting more snacks, so that she can avoid them away, mumbles at times, seems to still be with ongoing psychotic symptoms. Slept but with medical artist awakenings. PLAN: The patient with ongoing psychotic symptoms, odd behaviors, hoarding behaviors also with negative symptoms of what appears to be schizophrenia. I will be increasing her dosing of Risperdal today. JOB# [id number]
[2019-01-12] MEDS: Promethazine DM 6.25/15mg-5mL 5 ML SYR PO PRN (21:27)
--- NOTE | 2019-01-12 21:57 | General Progress Note ---
Subjective - Review of Systems Service Date: 01/12/19 Subjective: Patient doing ok denied chest pain or trouble breathing Objective - Results Result Diagrams: 01/08/19 12:50 01/08/19 12:50 Recent Labs: Laboratory Last Values WBC 7.3 Th/cmm (4.8-10.8) 01/08/19 12:50 RBC 3.87 Mil/cmm (3.80-5.20) 01/08/19 12:50 Hgb 11.3 gm/dL (12-16) L 01/08/19 12:50 Hct 34.4 % (41.0-60) L 01/08/19 12:50 MCV 88.8 fl (81-100) 01/08/19 12:50 MCH 29.2 pg (27.0-31.0) 01/08/19 12:50 MCHC Differential 32.9 pg (28.0-36.0) 01/08/19 12:50 RDW 14.0 % (11.5-20.0) 01/08/19 12:50 Plt Count 252 Th/cmm (150-400) 01/08/19 12:50 MPV 6.8 fl 01/08/19 12:50 Neutrophils % 54.4 % (40.0-80.0) 01/08/19 12:50 Lymphocytes % 33.7 % (20.0-50.0) 01/08/19 12:50 Monocytes % 7.0 % (2.0-10.0) 01/08/19 12:50 Eosinophils % 3.8 % (0.0-5.0) 01/08/19 12:50 Basophils % 1.1 % (0.0-2.0) 01/08/19 12:50 Sodium 130 mEq/L (136-145) L 01/08/19 12:50 Potassium 3.9 mEq/L (3.5-5.1) 01/08/19 12:50 Chloride 100 mEq/L (98-107) 01/08/19 12:50 Carbon Dioxide 23.2 mEq/L (21.0-31.0) 01/08/19 12:50 Anion Gap 10.7 (7.0-16.0) 01/08/19 12:50 BUN 12 mg/dL (7-25) 01/08/19 12:50 Creatinine 1.0 mg/dL (0.6-1.2) 01/08/19 12:50 Est GFR ( Amer) TNP 01/08/19 12:50 Est GFR (Non-Af Amer) TNP 01/08/19 12:50 BUN/Creatinine Ratio 12.0 01/08/19 12:50 Glucose 135 mg/dL (70-105) H 01/08/19 12:50 Calcium 9.0 mg/dL (8.6-10.3) 01/08/19 12:50 Total Bilirubin 0.5 mg/dL (0.3-1.0) 01/08/19 12:50 AST 31 U/L (13-39) 01/08/19 12:50 ALT 31 U/L (7-52) 01/08/19 12:50 Alkaline Phosphatase 95 U/L (34-104) 01/08/19 12:50 Creatine Kinase 469 U/L (30-223) H 01/08/19 12:50 CK-MB (CK-2) 14.5 ng/mL (0.6-6.3) H 01/08/19 12:50 Troponin I 0.01 ng/mL (0.01-0.05) 01/08/19 12:50 Total Protein 6.5 gm/dL (6.0-8.3) 01/08/19 12:50 Albumin 3.9 gm/dL (3.7-5.3) 01/08/19 12:50 Globulin 2.6 gm/dL 01/08/19 12:50 Albumin/Globulin Ratio 1.5 (1.0-1.8) 01/08/19 12:50 Triglycerides 91 mg/dL (<150) 01/09/19 07:25 Cholesterol 179 mg/dL (<200) 01/09/19 07:25 LDL Cholesterol Direct 106 mg/dL (75-193) 01/09/19 07:25 HDL Cholesterol 54 mg/dL (23-92) 01/09/19 07:25 TSH 7.32 uIU/ml (0.34-5.60) H 01/08/19 12:50 Urine Source MIDSTREAM 01/08/19 12:35 Urine Color YELLOW 01/08/19 12:35 Urine Clarity CLEAR (CLEAR) 01/08/19 12:35 Urine pH 6.5 (4.6 - 8.0) 01/08/19 12:35 Ur Specific [place] <= 1.005 (1.005-1.030) 01/08/19 12:35 Urine Protein NEGATIVE mg/dL (NEGATIVE) 01/08/19 12:35 Urine Glucose (UA) NEGATIVE mg/dL (NEGATIVE) 01/08/19 12:35 Urine Ketones NEGATIVE mg/dL (NEGATIVE) 01/08/19 12:35 Urine Blood NEGATIVE (NEGATIVE) 01/08/19 12:35 Urine Nitrate NEGATIVE (NEGATIVE) 01/08/19 12:35 Urine Bilirubin NEGATIVE (NEGATIVE) 01/08/19 12:35 Urine Urobilinogen 0.2 E.U./dL (0.2 - 1.0) 01/08/19 12:35 Ur Leukocyte Esterase NEGATIVE (NEGATIVE) 01/08/19 12:35 Urine RBC 0-2 /hpf (0-5) 01/08/19 12:35 Urine WBC 2-5 /hpf (0-5) 01/08/19 12:35 Ur Epithelial Cells MODERATE /lpf (FEW) 01/08/19 12:35 Urine Bacteria FEW /hpf (NONE SEEN) 01/08/19 12:35 Urine Opiates Screen NEGATIVE (NEGATIVE) 01/08/19 12:35 Urine Methadone Screen NEGATIVE (NEGATIVE) 01/08/19 12:35 Ur Barbiturates Screen NEGATIVE (NEGATIVE) 01/08/19 12:35 Ur Tricyclics Screen NEGATIVE (NEGATIVE) 01/08/19 12:35 Ur Phencyclidine Scrn NEGATIVE (NEGATIVE) 01/08/19 12:35 Amphetamines Screen NEGATIVE (NEGATIVE) 01/08/19 12:35 U Methamphetamines Scrn NEGATIVE (NEGATIVE) 01/08/19 12:35 U Benzodiazepines Scrn NEGATIVE (NEGATIVE) 01/08/19 12:35 U Cocaine Metab Screen NEGATIVE (NEGATIVE) 01/08/19 12:35 U Cannabinoids Screen NEGATIVE (NEGATIVE) 01/08/19 12:35 - Physical Exam Vitals and I&O: Vital Signs Temp 97.9 F 01/12/19 20:42 Pulse 78 01/12/19 20:42 Resp 20 01/12/19 20:42 BP 127/61 01/12/19 20:42 Pulse Ox 93 01/12/19 20:42 Intake & Output 01/12/19 01/12/19 01/13/19 06:59 18:59 06:59 Intake Total 120 240 Balance 120 240 Intake: Oral 120 240 Other: # Voids 2 2 # Bowel Movements 0 Active Medications: Current Medications Acetaminophen (Tylenol) 650 mg PO Q4HR PRN PRN Reason: Mild Pain / Temp above 100 Stop: 03/09/19 16:25 Last Admin: 01/09/19 10:47 Dose: 650 mg Al Hydrox/Mg Hydrox/Simethicone (Maalox) 30 ml PO Q4HR PRN PRN Reason: GI DISTRESS Stop: 03/09/19 16:25 Albuterol Sulfate (Albuterol 2.5mg/3ml Neb Ud) 2.5 mg HHN Q4H PRN PRN Reason: Shortness of Breath Stop: 03/10/19 18:00 Budesonide (Pulmicort) 0.5 mg HHN BIDRT KRISH Stop: 03/10/19 18:59 Last Admin: 01/12/19 19:50 Dose: 0.5 mg Levothyroxine Sodium (Synthroid) 0.1 mg PO QDAC KRISH Stop: 03/11/19 07:29 Last Admin: 01/12/19 06:34 Dose: 0.1 mg Lorazepam (Ativan) 0.5 mg PO Q4HR PRN; Protocol PRN Reason: Anxiety Stop: 02/07/19 16:25 Last Admin: 01/12/19 09:15 Dose: 0.5 mg Magnesium Hydroxide (Milk Of Magnesia) 30 ml PO HS PRN PRN Reason: Constipation Multivitamins/Vitamin C (Theragran) 1 tab PO DAILY KRISH Stop: 03/10/19 08:59 Last Admin: 01/12/19 09:13 Dose: 1 tab Promethazine HCl/Dextromethorphan (Phenergan Dm 6.25/15mg-5 Ml) 10 ml PO Q6HR PRN PRN Reason: Cough Stop: 03/10/19 18:03 Last Admin: 01/12/19 21:27 Dose: 10 ml Risperidone (Risperdal) 2 mg PO BID KRISH; Protocol Stop: 03/13/19 08:59 Last Admin: 01/12/19 18:10 Dose: 2 mg Zolpidem Tartrate (Ambien) 5 mg PO HS PRN PRN Reason: Insomnia Stop: 03/09/19 16:25 General: No acute distress Cardiovascular: Regular rate Lungs: Clear to auscultation Assessment/Plan - Assessment Assessment: COPD Hypothyroidism Mental health disorder - Plan Plan: Continue levothyroxine Albuterol Pulmicort Psychotropic meds per psychiatrist
[2019-01-13] MEDS: Levothyroxine 0.1 Mg Tab PO SCH (06:37)
[2019-01-13] MEDS: Budesonide 0.5 Mg/2 mL Ud HHN SCH ×2 (07:07→18:58)
[2019-01-13] MEDS: Multivitamin Tab PO SCH (08:09)
[2019-01-14] MEDS: Promethazine DM 6.25/15mg-5mL 5 ML SYR PO PRN (01:24)
[2019-01-14] MEDS: Levothyroxine 0.1 Mg Tab PO SCH (06:29)
--- NOTE | 2019-01-14 07:17 | Progress Notes ---
DATE: 01/13/2019 The patient in the hospital, still remains odd bizarre, still with ongoing hoarding behaviors, psychotic symptoms, delusions, rambling, disorganized on exam. The case management is trying to help the patient with placement. I will be continuing to adjust medications. Ongoing concerns about underlying psychotic symptoms. Fair sleep. Fair appetite. She is more redirectable, mostly keeps to herself, noted to be mumbling. PLAN: We will start dosing of Cogentin, increase Risperdal. JOB# [id number]
[2019-01-14] MEDS: Budesonide 0.5 Mg/2 mL Ud HHN SCH ×2 (07:49→19:43)
[2019-01-14] MEDS: Multivitamin Tab PO SCH (08:53)
[2019-01-15] MEDS: Levothyroxine 0.1 Mg Tab PO SCH (06:34)
[2019-01-15] MEDS: Budesonide 0.5 Mg/2 mL Ud HHN SCH ×2 (07:24→18:48)
[2019-01-15] MEDS: Multivitamin Tab PO SCH (08:44)
--- NOTE | 2019-01-15 10:38 | Progress Notes ---
DATE: 01/14/2019 SUBJECTIVE: The patient still with hoarding behavior, pacing, wandering, still mumbling to self, ongoing psychotic symptoms, disheveled, unkempt, fair sleep, fair appetite. She is generally following unit rules and direction, appearing somewhat restless on exam. ASSESSMENT: The patient with ongoing psychotic symptoms, still suspicious, paranoid of others. PLAN: I will be increasing dosing of Risperdal today. [facility]# [id number]
--- NOTE | 2019-01-16 01:39 | Progress Notes ---
DATE: 01/15/2019 SUBJECTIVE: The patient is currently in the hospital, noted to be visible on the unit, still fixated on leaving, yelling still at the SCRAP DROP ENGINEER, going into the wrong room, confused, still disoriented, seems to still be a hoarding, likely approaching her baseline. The patient has placement confirmed. Likely at her baseline no agitation, no escalation of behaviors, but still with some yelling and screaming episodes. PLAN: We will continue to monitor. Monitor for further 24 hours. Stay on the side of caution. We are trying to establish with the patient, may be able to discharge to go upon discharge. JOB# [id number]
[2019-01-16] MEDS: Levothyroxine 0.1 Mg Tab PO SCH (06:32)
[2019-01-16] MEDS: Budesonide 0.5 Mg/2 mL Ud HHN SCH ×2 (07:11→19:59)
[2019-01-16] MEDS: Multivitamin Tab PO SCH (08:24)
[2019-01-16] MEDS: Promethazine DM 6.25/15mg-5mL 5 ML SYR PO PRN (10:44)
[2019-01-17] MEDS: Levothyroxine 0.1 Mg Tab PO SCH (06:39)
[2019-01-17] MEDS: Budesonide 0.5 Mg/2 mL Ud HHN SCH ×2 (07:54→18:47)
[2019-01-17] MEDS: Multivitamin Tab PO SCH (08:38)
--- NOTE | 2019-01-17 12:38 | Progress Notes ---
DATE: 01/16/2019 SUBJECTIVE: The patient was seen today 01/16/2019. She is pretty irritable, upset impoverished speech, refusing to go to [facility]. At the same time, her electronic field service engineer is ambivalent about taking her home, feels that she may not be able to care for her given she was stealing and was decompensating and becoming psychotic, stopped her medications. The patient remains disheveled, unkempt, still with hoarding behaviors, but she is not aggressive or agitated. Medications were noted for sleep, for appetite, still requiring some prompting and redirection. PLAN: We will continue to monitor. We are attempting to work on a safe discharge plan. The patient likely approaching her baseline. We will continue medications at current dose and I did meet personally with her electronic field service engineer today. JOB# [id number]
[2019-01-18] MEDS: Budesonide 0.5 Mg/2 mL Ud HHN SCH (06:26)
[2019-01-18] MEDS: Levothyroxine 0.1 Mg Tab PO SCH (06:39)
[2019-01-18] MEDS: Multivitamin Tab PO SCH (08:33)
--- NOTE | 2019-01-18 17:53 | Progress Notes ---
DATE: SUBJECTIVE: The patient seen, chart reviewed, discussed with staff. The patient is currently in the hospital, refusing placement. Catering Truck Driver cannot take care of her. The patient lying on the floor outside, talking about bizarre things like rolling cigars, not making much sense, refusing to go to [facility] but at the same time, she has no plans that she will take care of herself. She is ____, still very disheveled, unkempt. Fair sleep. Eating on her own ____ chemical processor yesterday. ASSESSMENT: The patient remains unruly, agitated, poor insight, ongoing concerns about grave disability. We will continue to monitor, titrate medications as tolerated. [facility]# [id number]
== END 2019-01-18 11:15 | disposition home or self-care (01) | DRG 885 ==
LOC: ER 12:19 → GERO2 15:00 → GERO 01-09 16:31
PROVIDERS: ADMIT Psychiatry & Neurology Psychiatry; ATTEND Psychiatry & Neurology Psychiatry
DX: F20.9 Schizophrenia, unspecified (principal); E87.1 Hypo-osmolality and hyponatremia; F03.90 Unspecified dementia, unspecified severity, without behavioral disturbance, psychotic disturbance, mood disturbance, and anxiety; E03.9 Hypothyroidism, unspecified; J44.9 Chronic obstructive pulmonary disease, unspecified; I10 Essential (primary) hypertension; D64.9 Anemia, unspecified; F29 Unspecified psychosis not due to a substance or known physiological condition; F17.210 Nicotine dependence, cigarettes, uncomplicated
CPT/HCPCS: 36415-UA; 71045-TC; 80053-TC; 80061-TC; 80307; 81001-TC; 82550-TC; 82553; 83036-90; 84443-TC; 84484-TC; 85025-TC; 93005; 94640; 94760; G0410; Z7610

== ENCOUNTER 2019-01-27 09:17 | Inpatient (IN) | payer MEDICARE, MEDICAID ==
--- NOTE | 2019-01-27 10:20 | ED Physician Chart ---
ED Chief Complaint/HPI - Patient Information Date Seen:: 01/27/19 Time Seen:: 09:45 Chief Complaint:: Confusion History of Present Illness:: onset x 3 days of confusion and agitation; no report of trauma, H/As, S/T, neck pain, C/P, SOB, Abd. Pain, A/N/V/D/C, fever, chills, or urinary s/s Allergies:: Allergies Allergy/AdvReac Type Severity Reaction Status Date / Time No Known Allergies Allergy Verified 01/08/19 12:34 Vitals:: Vital Signs - 8 hr 01/27/19 09:46 Temp 97.8 F HR 60 RR 16 BP 97/46 O2 Sat % 98 Historian:: Patient, Family Member Review:: Nurse's Note Reviewed, Old Chart Reviewed ED Review of Systems - Review of Systems General/Constitutional: No fever, No chills, No weight loss, No weakness, No diaphoresis, No edema, No loss of appetite Skin: No skin lesions, No rash, No bruising Head: No headache, No light-headedness Eyes: No loss of vision, No pain, No diplopia ENT: No earache, No nasal drainage, No sore throat, No tinnitus Neck: No neck pain, No swelling, No thyromegaly, No stiffness, No mass noted Cardio Vascular: No chest pain, No palpitations, No PND, No orthopnea, No edema Pulmonary: No SOB, No cough, No sputum, No wheezing GI: No nausea, No vomiting, No diarrhea, No pain, No melena, No hematochezia, No constipation, No hematemesis G/U: No dysuria, No frequency, No hematuria, No nacturia Wool Merchant: No vaginal discharge, No abnormal vaginal bleed, No contraction Musculoskeletal: No bone or joint pain, No back pain, No muscle pain Endocrine: No polyuria, No polydipsia Psychiatric: Prior psych history, Depression, Anxiety, No suicidal ideation, No homicidal ideation, No auditory hallucination, No visual hallucination Hematopoietic: No bruising, No lymphadenopathy Allergic/Immuno: No urticaria, No angioedema Neurological: No syncope, No focal symptoms, No weakness, No paresthesia, No headache, No seizure, No dizziness, Confusion, No vertigo ED Past Medical History - Past Medical History Obtainable: Yes Past Medical History: HTN, Asthma/COPD, Thyroid disorder, Dementia Family History: HTN Social History: Non Smoker, No Alcohol, No Drug Use, Surgical History: None Psychiatricy History: Dementia Medication: Reviewed Family Medical History - Family Member Mother History Unknown: Yes Ethnicity: Unknown Living Status: Hx Family Cancer: No Hx Family Coronary Artery Disease: No Hx Family Congestive Heart Failure: No Hx Family Hypertension: No Hx Family Stroke: No Hx Family Diabetes: No Hx Family Seizures: No Hx Family Hepatitis: No Hx Family Psychiatric Problems: No Father History Unknown: Yes Ethnicity: Unknown Living Status: Hx Family Cancer: (unknown) Hx Family Coronary Artery Disease: (unknown) Hx Family Congestive Heart Failure: (unknown) Hx Family Hypertension: (unknown) Hx Family Stroke: (unknown) Hx Family Diabetes: (unknown) Hx Family Seizures: (unknown) Hx Family Dementia: (unknown) Hx Family AIDS: (unknown) Hx Family COPD: (unknown) Hx Family Hepatitis: (unknown) Hx Family Psychiatric Problems: (unknown) Hx Family Tuberculosis: (unknown) ED Physical Exam - Physical Examination General/Constitutional: Awake, Well-developed, well-nourished, Alert, No distress, GCS 15, Non-toxic appearing, Ambulatory Head: Atraumatic Eyes: Lids, conjuctiva normal, PERRL, EOMI Skin: Nl inspection, No rash, No skin lesions, No ecchymosis, Well hydrated, No lymphadenopathy ENMT: External ears, nose nl, TM canals nl, Nasal exam nl, Lips, teeth, gums nl , Oropharynx nl, Tonsils nl Neck: Nontender, Full ROM w/o pain, No JVD, No nuchal rigidity, No bruit, No mass, No stridor Other Neck comments:: supple; no meningeal signs Respiratory: Nl effort/Exclusion, Clear to Auscultation, No Wheeze/Rhonchi/Rales Cardio Vascular: RRR, No murmur, gallop, rubs, NL S1 S2, Carotid/Femoral/Distal pulses equal bilaterally GI: No tenderness/rebounding/guarding, No organomegaly, No hernia, Normal BS's, Nondistended, No mass/bruits, No McBurney tenderness Other GI comments:: no pulsatile masses : No CVA tenderness Extremities: No tenderness or effusion, Full ROM, normal strength in all extremities, No edema, Normal digits & nails Neuro/Psych: Alert/oriented, DTR's symmetric, Normal sensory exam, Normal motor strength, Judgement/insight normal, Mood normal, Normal gait, No focal deficits Other Neuro/Psych comments:: + Psychomotor Agitation; no SIs; Mood/Affect: Labile Misc: Normal back, No paraspinal tenderness ED Labs/Radiology/EKG Results - Lab Results Comments:: Reviewed - Radiology Results Comments:: CXR: NAD - EKG Interpretations Comments:: Reviewed ED Septic Shock - . Is Septic Shock (SBP<90, OR Lactate>4 mmol\L) present?: No - <6hrs of presentation: Vital Signs: Vital Signs - 8 hr 01/27/19 09:46 Temp 97.8 F HR 60 RR 16 BP 97/46 O2 Sat % 98 ED Reassessment (Disposition) - Reassessment Reassessment Condition:: Improved - Diagnosis Diagnosis:: Agitation; Medical Clearance; Dementia; Bipolar Disorder - Aftercare/Follow up Instructions Aftercare/Follow-Up Instructions:: Counseled pt regarding lab results/diagnosis & need follow up, Counseled pt & family regarding lab results/diagnosis & need follow up - Patient Disposition Discharge/Transfer:: Acute Care w/in this hosp Accepting Physician:: Dr. Christy Time Called:: 1130 Time Responded:: 11:30 Admitted to:: [facility] Spoke to:: Dr. Christy Admitting Medical Physician:: Dr. Christy Condition at Disposition:: Stable, Improved
[2019-01-27 10:43] LABS: % BASOPHILS 0.6 % (0.0-2.0); % EOSINOPHILS 2.2 % (0.0-5.0); % LYMPHOCYTES 26.4 % (20.0-50.0); % MONOCYTES 6.8 % (2.0-10.0); EOSINOPHILE ABSOLUTE 0.2 Th/cmm (0.1-0.4); HEMATOCRIT 34.7 % (41.0-60); HEMOGLOBIN 11.6 gm/dL (12-16); MEAN CELL VOLUME 89.3 fl (81-100); MEAN CORPUSCULAR HEMOGLOBIN 29.8 pg (27.0-31.0); MEAN CORPUSCULAR HGB CONC 33.3 pg (28.0-36.0); MEAN PLATELET VOLUME 7.3 fl; MONOCYTE ABSOLUTE 0.5 Th/cmm (0.3-1.0); NEUTROPHILE ABSOLUTE 4.8 Th/cmm (1.8-8.0); PLATELET COUNT 255 Th/cmm (150-400); RED BLOOD COUNT 3.88 Mil/cmm (3.80-5.20); RED CELL DISTRIBUTION WIDTH 14.3 % (11.5-20.0); WHITE BLOOD COUNT 7.5 Th/cmm (4.8-10.8)
[2019-01-27 11:01] LABS: URINE SOURCE MIDSTREAM
[2019-01-27 11:03] LABS: ALBUMIN 3.9 gm/dL (3.7-5.3); ANION GAP 12.9 (7.0-16.0); BUN - UREA NITROGEN 9 mg/dL (7-25); CALCIUM SERUM 9.1 mg/dL (8.6-10.3); CARBON DIOXIDE 23.4 mEq/L (21.0-31.0); CHLORIDE 97 mEq/L (98-107); GLUCOSE 110 mg/dL (70-105); POTASSIUM SERUM 4.3 mEq/L (3.5-5.1); SODIUM SERUM 129 mEq/L (136-145); TOTAL PROTEIN,SERUM 6.8 gm/dL (6.0-8.3)
[2019-01-27 11:04] LABS: ACETAMINOPHEN < 10.0 ug/mL (10.0-30.0); ALB/GLOB RATIO 1.3 (1.0-1.8); ALKALINE PHOSPHATASE 92 U/L (34-104); BILIRUBIN,TOTAL 0.5 mg/dL (0.3-1.0); CHOLESTEROL 171 mg/dL (<200); HDL -HIGH DENSITY LIPOPROTEIN 57 mg/dL (23-92); SGOT 74 U/L (13-39); SGPT/ALT 45 U/L (7-52); TRIGLYCERIDES 74 mg/dL (<150)
[2019-01-27 11:05] LABS: TROP I 0.01 ng/mL (0.01-0.05)
[2019-01-27 11:07] LABS: SALICYLATES (ASPIRIN) < 25.0 mg/L (30.0-100.0)
[2019-01-27 11:19] LABS: URINE BILIRUBIN NEGATIVE (NEGATIVE); URINE BLOOD NEGATIVE (NEGATIVE); URINE GLUCOSE (UA) NEGATIVE (NEGATIVE); URINE KETONE TRACE mg/dL (NEGATIVE); URINE LEUKOCYTE ESTERASE NEGATIVE (NEGATIVE); URINE NITRATE NEGATIVE (NEGATIVE); URINE PH 6.5 (4.6 - 8.0); URINE PROTEIN NEGATIVE (NEGATIVE); URINE UROBILINOGEN 0.2 E.U./dL (0.2 - 1.0)
[2019-01-27 11:22] LABS: CREATININE KINASE 1764 U/L (30-223)
[2019-01-27 11:28] LABS: INR 0.97 (0.5-1.4); PROTHROMBIN TIME (TEST) 10.1 SECONDS (9.5-11.5)
[2019-01-27 11:31] LABS: URINE COLOR STRAW
[2019-01-27 11:32] LABS: URINE MICROSCOPIC INDICATED? YES
[2019-01-27 11:41] LABS: URINE CLARITY SLIGHT HAZY (CLEAR); URINE RBC NONE SEEN /hpf (0-5)
[2019-01-27 11:42] LABS: URINE EPITHELIAL CELLS OCCASIONAL /lpf (FEW)
[2019-01-27 11:45] LABS: URINE BACTERIA FEW /hpf (NONE SEEN)
[2019-01-27 12:46] LABS: AMPHETAMINE URINE NEGATIVE (NEGATIVE); BARBITURATES URINE NEGATIVE (NEGATIVE); BENZODIAZEPINES QUAL URINE NEGATIVE (NEGATIVE); CANNABINOID THC NEGATIVE (NEGATIVE); COCAINE METABOLITE QUAL URINE NEGATIVE (NEGATIVE); METHADONE URINE NEGATIVE (NEGATIVE); METHAMPHETAMINES QUAL URINE NEGATIVE (NEGATIVE); OPIATES (MORPHINE) QUAL. URINE NEGATIVE (NEGATIVE); PHENCYCLIDINE (PCP) URINE NEGATIVE (NEGATIVE); TRICYCLICS (TCA) QUAL. URINE NEGATIVE (NEGATIVE)
--- NOTE | 2019-01-27 13:18 | Diagnostic Imaging Report ---
Portable chest x-ray HISTORY: Pain The heart size is difficult to assess with portable technique and a poor inspiration. No acute focal pulmonary processes. No hilar or mediastinal abnormalities. IMPRESSION: 1. No acute pulmonary processes
[2019-01-27] MEDS ORDERED: Maalox 30 mL Cup PO PRN (16:17)
[2019-01-27] MEDS ORDERED: Magnesium Hydroxide (MOM) 30 mL UDC PO PRN (16:17)
[2019-01-27 16:26] VITALS: BP 121/73
[2019-01-27 16:40] LABS: CHOLESTEROL 177 mg/dL (<200); HDL -HIGH DENSITY LIPOPROTEIN 61 mg/dL (23-92); TRIGLYCERIDES 77 mg/dL (<150)
[2019-01-28] MEDS: Multivitamin Tab PO SCH (09:42)
--- NOTE | 2019-01-28 22:15 | History and Physical ---
History of Present Illness - HPI Chief Complaint: Behavior issue HPI: 73 yrs old female was admitted to [facility] unit for behaviour issue. Dr Zuñiga requested medical evaluation for this patient. No reported fever or diarrhea or vomiting or fever or chest pain or headache or bodyache. Vital Signs: Last Vital Signs Temp 97.2 F 01/28/19 20:09 Pulse 68 01/28/19 20:09 Resp 20 01/28/19 20:09 BP 130/71 01/28/19 20:09 Pulse Ox 98 01/28/19 20:09 Past Medical History Pulmonary: Report: Asthma, COPD Endocrine: Report: Hypothyroidism - Past Surgical History Past Surgical History: No pertinent Hx Family Medical History - Family Member Mother History Unknown: Yes Ethnicity: Unknown Living Status: Hx Family Cancer: No Hx Family Coronary Artery Disease: No Hx Family Congestive Heart Failure: No Hx Family Hypertension: No Hx Family Stroke: No Hx Family Diabetes: No Hx Family Seizures: No Hx Family Hepatitis: No Hx Family Psychiatric Problems: No Father History Unknown: Yes Ethnicity: Unknown Living Status: Hx Family Cancer: (unknown) Hx Family Coronary Artery Disease: (unknown) Hx Family Congestive Heart Failure: (unknown) Hx Family Hypertension: (unknown) Hx Family Stroke: (unknown) Hx Family Diabetes: (unknown) Hx Family Seizures: (unknown) Hx Family Dementia: (unknown) Hx Family AIDS: (unknown) Hx Family COPD: (unknown) Hx Family Hepatitis: (unknown) Hx Family Psychiatric Problems: (unknown) Hx Family Tuberculosis: (unknown) Other Medical History: Pt has HX of HTN, Asthma, Hypothyroidism. Social History Smoke: <1 pack per day Alcohol: None Drugs: None Lives: Friends Domestic Violence: Negative - Medications Home Medications: Home Medication Medication Instructions Recorded Type Acetaminophen [Tylenol] 650 mg PO Q4HR PRN tab 01/18/19 Rx Al Hyd/Mg Hyd/Simethicone [Maalox] 30 ml PO Q4HR PRN udc 01/18/19 Rx Albuterol Nebulizer 2.5mg/3mL 2.5 mg HHN Q4H PRN each 01/18/19 Rx [Albuterol Neb UD*] Benztropine [Cogentin*] 0.5 mg PO BID #30 tab 01/18/19 Rx Budesonide [Pulmicort] 0.5 mg HHN BIDRT ud 01/18/19 Rx Levothyroxine [Synthroid] 0.1 mg PO QDAC 30 Days tab 01/18/19 Rx Lorazepam [Ativan] 0.5 mg PO Q4HR PRN tab 01/18/19 Rx Magnesium Hydroxide [Milk of 30 ml PO HS PRN udc 01/18/19 Rx Magnesia] Multivitamin [Theragran] 1 tab PO DAILY tab 01/18/19 Rx Promethazine DM 6.25/15mg-5mL 10 ml PO Q6HR PRN syr 01/18/19 Rx [Phenergan DM 6.25/15mg-5 mL] Zolpidem Tartrate [Ambien] 5 mg PO HS PRN tab 01/18/19 Rx risperiDONE [RisperDAL] 3 mg PO BID tab 01/18/19 Rx - Allergies Allergies/Adverse Reactions: Allergies Allergy/AdvReac Type Severity Reaction Status Date / Time No Known Allergies Allergy Verified 01/08/19 12:34 Review of Systems - Review of Systems Constitutional: Denies: Fever Eyes: Denies: Vision Change ENT: Denies: Ear Pain Respiratory: Denies: Cough Cardiovascular: Denies: Chest Pain, Palpitations, Edema Gastrointestinal: Denies: Nausea, Vomiting, Abdominal Pain, Diarrhea Genitourinary: Denies: Dysuria Musculoskeletal: Denies: Neck Pain, Back Pain, Leg Pain Neurological: Report: No Significant Physical Exam - Physical Exam Neck: Denies: Within normal limits Cardiovascular Systems: Report: Regular, Rate and Rhythm Respiratory: Report: Clear to Auscultation of lung baum Abdomen: Report: Non-tender to palpation Extremities: Report: Non-tender to palpation., No pedal edema was noted on inspection - Lab Results All Lab Results last 24 hours: Microbiology 01/27/19 10:35 - Preliminary Blood NO GROWTH AFTER 24 HOURS 01/27/19 10:29 - Preliminary Blood NO GROWTH AFTER 24 HOURS - Assessment Assessment: Hypothyroidism COPD Hyponatremia Mental health disorder - Plan Plan: Psych evaluation per Psychiatrist Continue current medications Follow up labs Continue thyroid meds Fall precaution Medically stable
--- NOTE | 2019-01-28 23:26 | Psychiatric Evaluation ---
DATE OF SERVICE: 01/28/2019 JUSTIFICATION FOR HOSPITALIZATION: Worsening confusion and agitation over the past 72 hours. CHIEF COMPLAINT: "I am here for the same thing." HISTORY OF PRESENT ILLNESS: A 73-year-old female with a history of schizophrenia, recent discharge and readmission. The patient noted to be very bizarre, stealing objects, stealing things from others, confusion, agitation and when I asked her why she is here, she just states "the same thing." The patient needs to be essentially quarantine because she is a thief and is stealing people's things, seems to be decompensated, goes into other patients' rooms, steals other patient's objects and fitting room associate clearly unable to care for her at this time given the severity of her symptoms. PAST PSYCHIATRIC HISTORY: History of admissions in the past. She appears to be schizophrenic. Under medical, please see full H and P. SOCIAL HISTORY: Born in the [facility], has a fitting room associate. MEDICATIONS: Noted. MENTAL STATUS EXAMINATION: Disheveled, unkempt, fair eye contact. Poor orientation. Mood "okay." Affect flat. Thought processes were disorganized. No overt SI or HI. She seems to be mumbling to self, responding to internal stimuli, poor insight, poor judgment and poor impulse control. PROVISIONAL DIAGNOSIS: Schizophrenia. Concerns for possibly an underlying dementia. Under medical, please see full H and P ESTIMATED LENGTH OF STAY: 5-7 days. ASSESSMENT: The patient requiring hospitalization, disorganized, bizarre, increased agitation, stealing objects from others and stealing things from others. PLAN: We will restart medications. TREATMENT PLAN: Includes group as well as milieu therapy. CONDITIONS FOR DISCHARGE: Improved mood, improved affect, better control of her psychotic symptoms. [facility]# [id number]
[2019-01-29] MEDS: Multivitamin Tab PO SCH (08:57)
--- NOTE | 2019-01-29 19:39 | Progress Notes ---
DATE: 01/29/2019 SUBJECTIVE: The patient was seen today, 01/29/2019. The patient remains symptomatic, very impulsive, unpredictable, continues to steal from other people, disheveled, unkempt, needing a high level of prompting and redirection. Fair sleep, fair appetite, ongoing mumbling to self, responding to internal stimuli. Medications were reviewed. No overt side effects. ASSESSMENT: The patient is symptomatic, ongoing bizarre symptoms, stealing from others, suspicious. PLAN: We will continue to monitor. Continue dosing of Risperdal. [facility]# [id number]
[2019-01-30] MEDS: Multivitamin Tab PO SCH (08:13)
--- NOTE | 2019-01-30 21:43 | General Progress Note ---
Subjective - Review of Systems Service Date: 01/30/19 Subjective: Patient doing ok very confused Objective - Results Result Diagrams: 01/27/19 10:01/27/19 10:29 Recent Labs: Laboratory Last Values WBC 7.5 Th/cmm (4.8-10.8) 01/27/19 10: RBC 3.88 Mil/cmm (3.80-5.20) 01/27/19 10:29 Hgb 11.6 gm/dL (12-16) L 01/27/19 10:29 Hct 34.7 % (41.0-60) L 01/27/19 10:29 MCV 89.3 fl (81-100) 01/27/19 10: MCH 29.8 pg (27.0-31.0) 01/27/19 10: MCHC Differential 33.3 pg (28.0-36.0) 01/27/19 10: RDW 14.3 % (11.5-20.0) 01/27/19 10: Plt Count 255 Th/cmm (150-400) 01/27/19 10:29 MPV 7.3 fl 01/27/19 10: Neutrophils % 64.0 % (40.0-80.0) 01/27/19 10: Lymphocytes % 26.4 % (20.0-50.0) 01/27/19 10: Monocytes % 6.8 % (2.0-10.0) 01/27/19 10: Eosinophils % 2.2 % (0.0-5.0) 01/27/19 10: Basophils % 0.6 % (0.0-2.0) 01/27/19 10:29 PT 10.1 SECONDS (9.5-11.5) 01/27/19 10: INR 0.97 (0.5-1.4) 01/27/19 10: PTT (Actin FS) 33.0 SECONDS (26.0-38.0) 01/27/19 10:29 Sodium 129 mEq/L (136-145) L 01/27/19 10:29 Potassium 4.3 mEq/L (3.5-5.1) 01/27/19 10:29 Chloride 97 mEq/L (98-107) L 01/27/19 10:29 Carbon Dioxide 23.4 mEq/L (21.0-31.0) 01/27/19 10:29 Anion Gap 12.9 (7.0-16.0) 01/27/19 10:29 BUN 9 mg/dL (7-25) 01/27/19 10:29 Creatinine 1.0 mg/dL (0.6-1.2) 01/27/19 10:29 Est GFR ( Amer) TNP 01/27/19 10:29 Est GFR (Non-Af Amer) TNP 01/27/19 10:29 BUN/Creatinine Ratio 9.0 01/27/19 10:29 Glucose 110 mg/dL (70-105) H 01/27/19 10:29 Whole Bld Lactic Acid 0.90 mmol/L (0.60-1.99) 01/27/19 10:29 Calcium 9.1 mg/dL (8.6-10.3) 01/27/19 10:29 Total Bilirubin 0.5 mg/dL (0.3-1.0) 01/27/19 10:29 AST 74 U/L (13-39) H 01/27/19 10:29 ALT 45 U/L (7-52) 01/27/19 10:29 Alkaline Phosphatase 92 U/L (34-104) 01/27/19 10:29 Creatine Kinase 440 U/L (30-223) H 01/30/19 06:40 CK-MB (CK-2) 14.9 ng/mL (0.6-6.3) H 01/30/19 06:40 Troponin I 0.01 ng/mL (0.01-0.05) 01/27/19 10:29 Total Protein 6.8 gm/dL (6.0-8.3) 01/27/19 10:29 Albumin 3.9 gm/dL (3.7-5.3) 01/27/19 10:29 Globulin 2.9 gm/dL 01/27/19 10:29 Albumin/Globulin Ratio 1.3 (1.0-1.8) 01/27/19 10:29 Triglycerides 77 mg/dL (<150) 01/27/19 10:29 Cholesterol 177 mg/dL (<200) 01/27/19 10:29 LDL Cholesterol Direct 108 mg/dL (75-193) 01/27/19 10:29 HDL Cholesterol 61 mg/dL (23-92) 01/27/19 10:29 TSH 12.86 uIU/ml (0.34-5.60) H 01/27/19 10:29 Urine Source MIDSTREAM 01/27/19 10:30 Urine Color STRAW 01/27/19 10:30 Urine Clarity SLIGHT HAZY (CLEAR) 01/27/19 10:30 Urine pH 6.5 (4.6 - 8.0) 01/27/19 10:30 Ur Specific Mccormick 1.010 (1.005-1.030) 01/27/19 10:30 Urine Protein NEGATIVE mg/dL (NEGATIVE) 01/27/19 10:30 Urine Glucose (UA) NEGATIVE mg/dL (NEGATIVE) 01/27/19 10:30 Urine Ketones TRACE mg/dL (NEGATIVE) 01/27/19 10:30 Urine Blood NEGATIVE (NEGATIVE) 01/27/19 10:30 Urine Nitrate NEGATIVE (NEGATIVE) 01/27/19 10:30 Urine Bilirubin NEGATIVE (NEGATIVE) 01/27/19 10:30 Urine Urobilinogen 0.2 E.U./dL (0.2 - 1.0) 01/27/19 10:30 Ur Leukocyte Esterase NEGATIVE (NEGATIVE) 01/27/19 10:30 Urine RBC NONE SEEN /hpf (0-5) 01/27/19 10:30 Urine WBC 2-5 /hpf (0-5) 01/27/19 10:30 Ur Epithelial Cells OCCASIONAL /lpf (FEW) 01/27/19 10:30 Urine Bacteria FEW /hpf (NONE SEEN) 01/27/19 10:30 Salicylates < 25.0 mg/L (30.0-100.0) L 01/27/19 10:29 Urine Opiates Screen NEGATIVE (NEGATIVE) 01/27/19 10:30 Urine Methadone Screen NEGATIVE (NEGATIVE) 01/27/19 10:30 Acetaminophen < 10.0 ug/mL (10.0-30.0) L 01/27/19 10:29 Ur Barbiturates Screen NEGATIVE (NEGATIVE) 01/27/19 10:30 Ur Tricyclics Screen NEGATIVE (NEGATIVE) 01/27/19 10:30 Ur Phencyclidine Scrn NEGATIVE (NEGATIVE) 01/27/19 10:30 Amphetamines Screen NEGATIVE (NEGATIVE) 01/27/19 10:30 U Methamphetamines Scrn NEGATIVE (NEGATIVE) 01/27/19 10:30 U Benzodiazepines Scrn NEGATIVE (NEGATIVE) 01/27/19 10:30 U Cocaine Metab Screen NEGATIVE (NEGATIVE) 01/27/19 10:30 U Cannabinoids Screen NEGATIVE (NEGATIVE) 01/27/19 10:30 Ethyl Alcohol < 10 mg/dL (0-10) 01/27/19 10:29 RPR NONREACTIVE (NONREACTIVE) 01/27/19 10:29 - Physical Exam Vitals and I&O: Vital Signs Temp 97.3 F 01/30/19 20:33 Pulse 60 01/30/19 20:33 Resp 19 01/30/19 20:33 BP 122/64 01/30/19 20:33 Pulse Ox 96 01/30/19 20:33 Intake & Output 01/30/19 01/30/19 01/31/19 06:59 18:59 06:59 Intake Total 240 1200 Balance 240 1200 Intake: Oral 240 1200 Other: # Voids 2 # Bowel Movements 0 1 Stool Characteristics Soft Active Medications: Current Medications Acetaminophen (Tylenol) 650 mg PO Q4HR PRN PRN Reason: Mild Pain / Temp above 100 Stop: 03/28/19 16:16 Last Admin: 01/30/19 18:25 Dose: 650 mg Al Hydrox/Mg Hydrox/Simethicone (Maalox) 30 ml PO Q4HR PRN PRN Reason: GI DISTRESS Stop: 03/28/19 16:16 Benztropine Mesylate (Cogentin) 0.5 mg PO BID KRISH Stop: 03/29/19 08:59 Last Admin: 01/30/19 17:03 Dose: 0.5 mg Lorazepam (Ativan) 0.5 mg PO Q4HR PRN; Protocol PRN Reason: Agitation Stop: 02/26/19 16:16 Last Admin: 01/29/19 12:28 Dose: 0.5 mg Magnesium Hydroxide (Milk Of Magnesia) 30 ml PO HS PRN PRN Reason: Constipation Multivitamins/Vitamin C (Theragran) 1 tab PO DAILY KRISH Stop: 03/29/19 08:59 Last Admin: 01/30/19 08:13 Dose: 1 tab Risperidone (Risperdal) 3 mg PO BID KRISH; Protocol Stop: 03/29/19 08:59 Last Admin: 01/30/19 17:03 Dose: 3 mg Zolpidem Tartrate (Ambien) 5 mg PO HS PRN PRN Reason: Insomnia Stop: 03/28/19 16:16 Cardiovascular: Regular rate Lungs: Clear to auscultation Assessment/Plan - Assessment Assessment: Hypothyroidism COPD Hyponatremia Confusion Mental health disorder - Plan Plan: CK / CK MB improving Psych evaluation per Psychiatrist Continue current medications Follow up labs Continue thyroid meds Fall precaution Medically stable
--- NOTE | 2019-01-30 22:23 | Progress Notes ---
DATE: 01/30/2019 SUBJECTIVE: The patient in the hospital, symptomatic, impulsive, unpredictable, still mostly withdrawn, continues to steal from others, mumbling to self, internally preoccupied, currently endorsing Risperdal for sleep and for appetite. We will continue to monitor ongoing concerns given her bizarre behaviors, agitation, yells at times, confusional state. The patient seems more amenable to go to a detention. [facility]# [id number]
[2019-01-31] MEDS: Multivitamin Tab PO SCH (08:36)
[2019-02-01] MEDS: Multivitamin Tab PO SCH (09:07)
--- NOTE | 2019-02-01 18:59 | Progress Notes ---
DATE: 01/31/2019 SUBJECTIVE: The patient is seen today 01/31/2019, bizarre, symptomatic, still stealing pain, disheveled, unkempt, seems to be calmer at a higher dose of medications. Still stealing impulsive, unpredictable, unable to be cared for at a lower level of care, very impoverished thought processes. Medications were noted. ASSESSMENT AND PLAN: The patient remains symptomatic, still unruly, impulsive and still making some nonsensical comments. We will continue to monitor and also try to find a place for the patient to go upon discharge once she stabilizes further. [facility]OB# [id number]
--- NOTE | 2019-02-01 23:46 | Progress Notes ---
DATE: 02/01/2019 The patient in the hospital, symptomatic, highly impulsive, unpredictable, continues to steal from others, disheveled, unkempt and mumbling to self, but on a positive note, she is amenable to going to a rehab, but is still requiring a lot of prompting and redirection, still trying to go into the room of others, hoarding things, stealing things, poorly oriented. PLAN: We will continue to monitor. The patient is less agitated, less aggressive, but a lot of her psychotic symptoms are persisting. We will continue Risperdal. We are trying to also find a place for the patient to go. She cannot be cared for at a lower level of care. She is a rapid readmit. JOB# [id number]
[2019-02-02] MEDS: Multivitamin Tab PO SCH (08:47)
--- NOTE | 2019-02-02 19:41 | Progress Notes ---
DATE: 02/02/2019 SUBJECTIVE: The patient in the hospital also for about 5 hours, sleeping, arousable, still pretty disheveled, unkempt, bizarre of things around her in the room. The patient is still trying to steal things, grab things, wandering in other people's rooms, very impulsive, unpredictable. She did benefit from dose adjustments of medications. She has been generally calm, no overt escalation of behaviors. The patient is very impulsive. She may benefit from dosing of Depakote. We will initiate low-dose Depakote to see if that helps control some of her behaviors, helps her mood, controls impulsivity. JOB# [id number]
--- NOTE | 2019-02-03 07:46 | Progress Notes ---
DATE: 02/03/2019 The patient in the hospital noted to be disheveled, unkempt. She is somewhat friendly, sleeping fairly well, ride mechanic awakenings, redirectable, history of dementia, poor orientation and goes into other people's room, steal things, staff as to redirect her a lot, hoarding behaviors. We are attempting to place the patient. ASSESSMENT: The patient remains symptomatic. The patient is agreeable to go to a [facility], will attempt to make appropriate recommendations. [facility]# [id number]
[2019-02-03] MEDS: Multivitamin Tab PO SCH (09:16)
[2019-02-04] MEDS: Multivitamin Tab PO SCH (09:40)
--- NOTE | 2019-02-04 23:57 | Progress Notes ---
DATE: 02/04/2019 SUBJECTIVE: The patient is currently in the hospital, agreeable to go to a [facility]. Still impulsive, unpredictable, labile, wandering down to people's rooms, stealing things from others, intrusive, making some nonsensical comments, likely approaching her baseline. She is generally calmer, more cooperative, seems to be making some improvement. I did initiate Depakote. Fair sleep, fair appetite. We will continue to monitor. Start dosing of Depakote. [facility]# [id number]
[2019-02-05] MEDS: Multivitamin Tab PO SCH (09:09)
--- NOTE | 2019-02-05 22:13 | General Progress Note ---
Subjective - Review of Systems Subjective: Patient doing ok very confused Objective - Results Result Diagrams: 01/27/19 10:01/27/19 10:29 Recent Labs: Laboratory Last Values WBC 7.5 Th/cmm (4.8-10.8) 01/27/19 10:29 RBC 3.88 Mil/cmm (3.80-5.20) 01/27/19 10:29 Hgb 11.6 gm/dL (12-16) L 01/27/19 10:29 Hct 34.7 % (41.0-60) L 01/27/19 10:29 MCV 89.3 fl (81-100) 01/27/19 10: MCH 29.8 pg (27.0-31.0) 01/27/19 10: MCHC Differential 33.3 pg (28.0-36.0) 01/27/19 10: RDW 14.3 % (11.5-20.0) 01/27/19 10: Plt Count 255 Th/cmm (150-400) 01/27/19 10:29 MPV 7.3 fl 01/27/19 10: Neutrophils % 64.0 % (40.0-80.0) 01/27/19 10: Lymphocytes % 26.4 % (20.0-50.0) 01/27/19 10: Monocytes % 6.8 % (2.0-10.0) 01/27/19 10: Eosinophils % 2.2 % (0.0-5.0) 01/27/19 10: Basophils % 0.6 % (0.0-2.0) 01/27/19 10:29 PT 10.1 SECONDS (9.5-11.5) 01/27/19 10: INR 0.97 (0.5-1.4) 01/27/19 10: PTT (Actin FS) 33.0 SECONDS (26.0-38.0) 01/27/19 10:29 Sodium 129 mEq/L (136-145) L 01/27/19 10:29 Potassium 4.3 mEq/L (3.5-5.1) 01/27/19 10:29 Chloride 97 mEq/L (98-107) L 01/27/19 10: Carbon Dioxide 23.4 mEq/L (21.0-31.0) 01/27/19 10:29 Anion Gap 12.9 (7.0-16.0) 01/27/19 10:29 BUN 9 mg/dL (7-25) 01/27/19 10:29 Creatinine 1.0 mg/dL (0.6-1.2) 01/27/19 10:29 Est GFR ( Amer) TNP 01/27/19 10:29 Est GFR (Non-Af Amer) TNP 01/27/19 10:29 BUN/Creatinine Ratio 9.0 01/27/19 10:29 Glucose 110 mg/dL (70-105) H 01/27/19 10:29 Whole Bld Lactic Acid 0.90 mmol/L (0.60-1.99) 01/27/19 10:29 Calcium 9.1 mg/dL (8.6-10.3) 01/27/19 10:29 Total Bilirubin 0.5 mg/dL (0.3-1.0) 01/27/19 10:29 AST 74 U/L (13-39) H 01/27/19 10:29 ALT 45 U/L (7-52) 01/27/19 10:29 Alkaline Phosphatase 92 U/L (34-104) 01/27/19 10:29 Creatine Kinase 440 U/L (30-223) H 01/30/19 06:40 CK-MB (CK-2) 14.9 ng/mL (0.6-6.3) H 01/30/19 06:40 Troponin I 0.01 ng/mL (0.01-0.05) 01/27/19 10:29 Total Protein 6.8 gm/dL (6.0-8.3) 01/27/19 10:29 Albumin 3.9 gm/dL (3.7-5.3) 01/27/19 10:29 Globulin 2.9 gm/dL 01/27/19 10:29 Albumin/Globulin Ratio 1.3 (1.0-1.8) 01/27/19 10:29 Triglycerides 77 mg/dL (<150) 01/27/19 10:29 Cholesterol 177 mg/dL (<200) 01/27/19 10:29 LDL Cholesterol Direct 108 mg/dL (75-193) 01/27/19 10:29 HDL Cholesterol 61 mg/dL (23-92) 01/27/19 10:29 TSH 12.86 uIU/ml (0.34-5.60) H 01/27/19 10:29 Urine Source MIDSTREAM 01/27/19 10:30 Urine Color STRAW 01/27/19 10:30 Urine Clarity SLIGHT HAZY (CLEAR) 01/27/19 10:30 Urine pH 6.5 (4.6 - 8.0) 01/27/19 10:30 Ur Specific [place] 1.010 (1.005-1.030) 01/27/19 10:30 Urine Protein NEGATIVE mg/dL (NEGATIVE) 01/27/19 10:30 Urine Glucose (UA) NEGATIVE mg/dL (NEGATIVE) 01/27/19 10:30 Urine Ketones TRACE mg/dL (NEGATIVE) 01/27/19 10:30 Urine Blood NEGATIVE (NEGATIVE) 01/27/19 10:30 Urine Nitrate NEGATIVE (NEGATIVE) 01/27/19 10:30 Urine Bilirubin NEGATIVE (NEGATIVE) 01/27/19 10:30 Urine Urobilinogen 0.2 E.U./dL (0.2 - 1.0) 01/27/19 10:30 Ur Leukocyte Esterase NEGATIVE (NEGATIVE) 01/27/19 10:30 Urine RBC NONE SEEN /hpf (0-5) 01/27/19 10:30 Urine WBC 2-5 /hpf (0-5) 01/27/19 10:30 Ur Epithelial Cells OCCASIONAL /lpf (FEW) 01/27/19 10:30 Urine Bacteria FEW /hpf (NONE SEEN) 01/27/19 10:30 Salicylates < 25.0 mg/L (30.0-100.0) L 01/27/19 10:29 Urine Opiates Screen NEGATIVE (NEGATIVE) 01/27/19 10:30 Urine Methadone Screen NEGATIVE (NEGATIVE) 01/27/19 10:30 Acetaminophen < 10.0 ug/mL (10.0-30.0) L 01/27/19 10:29 Ur Barbiturates Screen NEGATIVE (NEGATIVE) 01/27/19 10:30 Ur Tricyclics Screen NEGATIVE (NEGATIVE) 01/27/19 10:30 Ur Phencyclidine Scrn NEGATIVE (NEGATIVE) 01/27/19 10:30 Amphetamines Screen NEGATIVE (NEGATIVE) 01/27/19 10:30 U Methamphetamines Scrn NEGATIVE (NEGATIVE) 01/27/19 10:30 U Benzodiazepines Scrn NEGATIVE (NEGATIVE) 01/27/19 10:30 U Cocaine Metab Screen NEGATIVE (NEGATIVE) 01/27/19 10:30 U Cannabinoids Screen NEGATIVE (NEGATIVE) 01/27/19 10:30 Ethyl Alcohol < 10 mg/dL (0-10) 01/27/19 10:29 RPR NONREACTIVE (NONREACTIVE) 01/27/19 10:29 - Physical Exam Vitals and I&O: Vital Signs Temp 97.5 F 02/05/19 20:00 Pulse 68 02/05/19 20:00 Resp 18 02/05/19 20:00 BP 117/76 02/05/19 20:00 Pulse Ox 98 02/05/19 20:00 Intake & Output 02/05/19 02/05/19 02/06/19 06:59 18:59 06:59 Intake Total 960 1500 Balance 960 1500 Intake: Oral 960 1500 Other: # Voids 3 4 # Bowel Movements 0 Active Medications: Current Medications Acetaminophen (Tylenol) 650 mg PO Q4HR PRN PRN Reason: Mild Pain / Temp above 100 Stop: 03/28/19 16:16 Last Admin: 02/05/19 16:33 Dose: 650 mg Al Hydrox/Mg Hydrox/Simethicone (Maalox) 30 ml PO Q4HR PRN PRN Reason: GI DISTRESS Stop: 03/28/19 16:16 Benztropine Mesylate (Cogentin) 0.5 mg PO BID KRISH Stop: 03/29/19 08:59 Last Admin: 02/05/19 16:33 Dose: 0.5 mg Divalproex Sodium (Depakote Dr) 125 mg PO Q12HR KRISH; Protocol Stop: 04/03/19 08:59 Last Admin: 02/05/19 20:15 Dose: 125 mg Guaifenesin/Dextromethorphan (Robitussin Dm) 10 ml PO Q6HR PRN PRN Reason: Cough Stop: 04/06/19 14:41 Magnesium Hydroxide (Milk Of Magnesia) 30 ml PO HS PRN PRN Reason: Constipation Multivitamins/Vitamin C (Theragran) 1 tab PO DAILY [facility] Stop: 03/29/19 08:59 Last Admin: 02/05/19 09:09 Dose: 1 tab Risperidone (Risperdal) 3 mg PO BID KRISH; Protocol Stop: 03/29/19 08:59 Last Admin: 02/05/19 16:33 Dose: 3 mg Cardiovascular: Regular rate Lungs: Clear to auscultation Assessment/Plan - Assessment Assessment: Hypothyroidism COPD Hyponatremia Confusion Mental health disorder - Plan Plan: CK / CK MB improving Psych evaluation per Psychiatrist Continue current medications Follow up labs Continue thyroid meds Fall precaution Medically stable Nutritional Asmnt/Malnutr-PDOC - Dietary Evaluation Malnutrition Findings (Please click <Entered> for more info): Nutritional Asmnt/Malnutrition Start: 02/01/19 10: 21 Text: Status: Complete Freq: Protocol: Document 02/01/19 10:21 [email or web address] (Rec: 02/01/19 10:36 [id number] [id number]) Nutritional Asmnt/Malnutrition Patient General Information Nutritional Screening Low Risk Diagnosis increased agitation Pertinent Medical Hx/Surgical Hx Asthma, COPD, hypothyroid Subjective Information Patient asleep at time of RD visit. Current Diet Order/ Nutrition Support Soft, Chopped Patient / S.O Not Indicated Pertinent Medications maalox, MOM, Theragran Pertinent Labs (01/27) Na 129, [id number] Nutritional Hx/Data Height 1.63 m Height (Calculated Centimeters) 162.6 Current Weight (lbs) 67.132 kg Weight (Calculated Kilograms) 67.1 Weight (Calculated Grams) 45811.7 [place] Body Weight 120 % [place] Body Weight 123 Body Mass Index (BMI) 25.4 Recent Weight Change No Weight Status Overweight GI Symptoms GI Symptoms None Last BM 01/31 x 1 Difficult in: None Food Allergies No Cultural/Ethnic/L[employer]an Belief none indicated Usual diet at home unknown Skin Integrity/Comment: Shaun 17, intact Current %PO Good (75-100%) Estimated Nutritional Goals BEE in Kcals: Using Current wt Calories/Kcals/Kg 67.2kg CBW 25-30 kcal/kg Kcals Calculated ~3129-0407 kcal/day Protein: Using Current wt Protein g/k.8-1 gm/kg Protein Calculated ~55-65 gm/day Fluid: ml ~0973-6694 ml/day Nutritional Problem 1. Problem Problem Altered related lab values related to Etiology electrolyte imbalance aeb Signs/Symptoms: Na 129 Intervention/Recommendation Comments 1. Continue soft, chopped diet as tolerated by patient. 2. If patient remains hyponatremic, consider fluid restriction. Expected Outcomes/Goals Expected Outcomes/Goals PO intake to meet >75% of nutritional needs, weight stability or trend toward ideal body weight, skin intact , nutrition related labs to approach WNL. F/U MR
[2019-02-06] MEDS: Guaifenesin DM 10 ML UDC PO PRN (05:00)
[2019-02-06] MEDS: Multivitamin Tab PO SCH (09:14)
--- NOTE | 2019-02-06 12:29 | Progress Notes ---
DATE: 02/05/2019 SUBJECTIVE: The patient argumentative, irritable, stating that she wants to leave immediately. Unkempt, impoverished appearing, also keeping to herself, still with some bouts of stealing, internally preoccupied, fair sleep, fair appetite, generally redirectable. We will continue to monitor. The patient showing some signs of improvement, generally calmer, but still unkempt, concerns about stealing, poor impulse control, continue dosing of risperidone. JOB# [id number]
[2019-02-07] MEDS: Guaifenesin DM 10 ML UDC PO PRN (00:23)
--- NOTE | 2019-02-07 00:28 | Progress Notes ---
DATE: 02/06/2019 SUBJECTIVE: The patient seems to be approaching her baseline, generally calmer, better ADLs, asking staff to help her take a shower, fair sleep, fair appetite, energy somewhat better, more up, more around, less intrusive following directions. Medications were noted. No side effects. ASSESSMENT: The patient more engaged, cooperative, no SI, no HI, psychotic symptoms seem to be dissipating, decreasing. We will monitor for further 24 hours. [facility]# [id number]
[2019-02-07] MEDS: Multivitamin Tab PO SCH (09:09)
--- NOTE | 2019-02-07 23:13 | Discharge Summary ---
DATE OF DISCHARGE: 02/07/[address] Zuñiga. IDENTIFYING INFORMATION: The patient is a 73-year-old female. CHIEF COMPLAINT: "I am here for same thing." HISTORY OF PRESENT ILLNESS: The patient with a history of schizophrenia, recent discharge from readmission. The patient is noted to be bizarre, stealing objects, stealing things from others, confusion, and agitation. The patient is unable to make safe plan for self-care, decompensating, going into other patient's rooms, steals other patient's things. The patient was admitted here with a history of schizophrenia. COURSE IN THE HOSPITAL: The patient has progressively got better. She was able to approach her baseline. She was sleeping well, eating well. The patient was compliant with the medication with no side effects and Dr. Zuñiga had her on Depakote 125 mg twice a day, Risperdal 3 mg twice a day with no side effects, no sedation, nausea ____ the patient was doing well. She was no longer acting in any ways psychotic or aggressive. She was at her baseline. Dr. Zuñiga felt she was ready to go to a lesser level of care. The patient was accepted at [facility]. FINAL DIAGNOSES: Chronic iron deficiency, schizophrenia, and possible dementia. MEDICAL DIAGNOSES: As per medical doctor. The patient will be going to a nursing facility at [facility]. The patient will followup with psychiatrist and primary care physician. EXPECTED OUTCOME: Stable if the patient complies with the above. JOB# [id number]
== END 2019-02-07 13:30 | DRG 885 ==
LOC: ER 09:17 → GERO 15:00
PROVIDERS: ADMIT Psychiatry & Neurology Psychiatry; ATTEND Psychiatry & Neurology Psychiatry
DX: F20.9 Schizophrenia, unspecified (principal); E87.1 Hypo-osmolality and hyponatremia; E03.9 Hypothyroidism, unspecified; J44.9 Chronic obstructive pulmonary disease, unspecified; I10 Essential (primary) hypertension; F03.90 Unspecified dementia, unspecified severity, without behavioral disturbance, psychotic disturbance, mood disturbance, and anxiety; E61.1 Iron deficiency
CPT/HCPCS: 36415-UA; 71045-TC; 80053-TC; 80061-TC; 80307; 80320-TC; 80329-TC; 81001-TC; 82550-TC; 82553; 83036-90; 83605; 84443-TC; 84484-TC; 85025-TC; 85610-TC; 85730-TC; 86592-TC; G0410; Z7610